=== PATIENT | female | born 1955 | race Caucasian/White ===

== ENCOUNTER 2024-10-08 16:31 | Emergency (ER) | payer MEDICARE, SELFPAY ==
--- NOTE | 2024-10-08 16:34 | ED.GENADULT ---
HPI - General Adult General Chief complaint: General Medical Stated complaint: left side face/cheek swollen Time Seen by Provider: 10/08/24 16:53 Related Data Allergies Allergy/AdvReac Type Severity Reaction Status Date / Time latex [LATEX] Allergy Unknown RASH Verified 10/08/24 16:39 pollen extracts [POLLEN] Allergy Unknown SINUS Verified 10/08/24 16:39 PROBLEMS, WATERY EYES PMFSH Social History Social History Advance Directives: No Advance Directives Information Provided: No Do you have a plan to hurt others: No Plan Physical Exam ED Vital Signs: Vital Signs - 24 hr 10/08/24 16:36 10/08/24 17:47 Temperature 97.1 F 98.0 F Pulse Rate 78 72 Respiratory Rate 18 16 Blood Pressure 148/50 H 120/44 L Pulse Oximetry 95 98 Oxygen Delivery Method Room Air Room Air BMI result Body Mass Index 44.8 Course Course Course Narrative: This is an RME: Additional HPI, ROS, PE not included below will be deferred to primary provider. RME assessment and note performed by: Krama Cunha PA-C This is a [id number]-female who presents to the ER with complaints of swelling and redness on left side of her face which begun yesterday. Reports that she had some dental work 1 month ago and was in the office for another tooth on thursday, which they just touched up on the same tooth. Reports that Thursday and she had a lot of discomfort on the left upper side of her face. She states that she contacted her dental office and was told to report to the emergency room and to receive IV antibiotics if it was warranted. Patient with no significant obvious left-sided facial swelling or pain. No obvious dental abscess. Reevaluation(s) Reevaluation #1: >> duplicate chart, see note by primary provider, Dr. Demarco. Medications Administered Discontinued Medications Generic Name Dose Route Start Last Admin Trade Name Freq PRN Reason Stop Dose Admin Piperacillin Sod/Tazobactam 50 mls @ 100 mls/hr 10/08/24 17:00 10/08/24 17:46 Sod 3.375 gm/ Sodium Chloride IV 10/08/24 17:29 Infused ONCE ONE Infusion Medical Decision Making Lab Data 10/08/24 17:15 10/08/24 17:15 Labs: Lab Results 10/08/24 Range/Units 17:15 WBC 9.2 (4.8-10.8) X10*3/uL RBC 4.12 L (4.20-5.50) X10*6/uL Hgb 12.3 (12.0-16.0) g/dl Hct 36.8 L (37.0-47.0) % MCV 89.3 (80.0-98.0) fL MCH 29.9 (27.0-33.0) pg MCHC 33.4 (31.0-35.0) g/dl RDW 13.3 (11.0-16.0) % Plt Count 240 (160-400) X10*3/uL MPV 10.5 (9.4-12.3) fL Immature Gran % (Auto) 0.3 (0.0-0.4) % Neut % (Auto) 58.2 (45-73) % Lymph % (Auto) 25.2 (20-40) % [place] % (Auto) 11.5 H (2-11) % Eos % (Auto) 4.4 H (0-4) % Baso % (Auto) 0.4 (0-2) % Lymph # (Auto) 2.3 (1.2-4.9) X10*3/uL [place] # (Auto) 1.1 (0.1-1.2) X10*3/uL Eos # (Auto) 0.4 (0.0-0.4) X10*3/uL Baso # (Auto) 0.0 (0.0-0.2) X10*3/uL Abs Immat Gran (auto) 0.03 (0.00-0.03) X10*3/uL Absolute Neuts (auto) 5.4 (2.0-8.3) x10*3/uL Absolute Nucleated RBC 0.000 (0.0-0.012) X10*3/uL Nucleated RBC % (auto) 0.0 (0.0-0.2) /100WBC Sodium 140 (135-145) mmol/L Potassium 4.3 (3.3-5.1) mmol/L Chloride 107 (96-108) mmol/L Carbon Dioxide 23 (22-29) mmol/L Anion Gap 14 (12-20) BUN 31 H (9-16) mg/dL Creatinine 1.22 (0.5-1.4) mg/dL Estim Creat Clear Calc 49.2 Estimated GFR 44 Random Glucose 125 H (60-115) mg/dL Calcium 9.8 (8.4-10.2) mg/dL Total Bilirubin 0.7 (0.0-1.0) mg/dL AST 26 (5-31) U/L ALT 27 (0-31) U/L Alkaline Phosphatase 65 (39-117) U/L Total Protein 7.0 (6.5-8.0) g/dL Albumin 4.2 (3.5-5.0) g/dL Discharge Plan Discharge Clinical Impression: Cellulitis of face Patient Disposition: Home, Self-Care Instructions: Cellulitis (ED) Additional Instructions: Take antibiotic as prescribed by your dentist Follow up with your PCP/dentist Interventions: ED Discharge Assessment Last Done: 10/08/24 17:47 Discharge Date/Time: 10/08/24 17:47 Print Language: Italian
[2024-10-08 16:36] VITALS: BP 148/50; PULSE 78; RESP 18; TEMP 36.2; O2SAT 95; BMI 44.8
--- NOTE | 2024-10-08 17:03 | ED_ITS ---
HPI - General Adult General Chief complaint: General Medical Stated complaint: left side face/cheek swollen Time Seen by Provider: 10/08/24 16:53 Source: patient Mode of arrival: ambulatory Limitations: no limitations History of Present Illness ED Provider: HPI narrative: Patient Diabetic apparently had filling done last week on the tooth 14 and 15 2 days ago patient had adjustment of the rough surface without any driling since yesterday patient noticed swelling and redness of the left cheek no significant pain fever or chills patient called dentist who advised her to go to the hospital for IV antibiotics Related Data Allergies Allergy/AdvReac Type Severity Reaction Status Date / Time latex [LATEX] Allergy Unknown RASH Verified 10/08/24 16:39 pollen extracts [POLLEN] Allergy Unknown SINUS Verified 10/08/24 16:39 PROBLEMS, WATERY EYES Review of Systems 2 Review of Systems: Yes all other systems are reviewed and are negative [facility] Social History Social History Advance Directives: No Advance Directives Information Provided: No Do you have a plan to hurt others: No Plan Physical Exam ED Vital Signs: Vital Signs - 24 hr 10/08/24 16:36 10/08/24 17:47 Temperature 97.1 F 98.0 F Pulse Rate 78 72 Respiratory Rate 18 16 Blood Pressure 148/50 H 120/44 L Pulse Oximetry 95 98 Oxygen Delivery Method Room Air Room Air BMI result Body Mass Index 44.8 Appearance: Alert. Oriented X3. No acute distress. Eyes: PERRLA, No Nystagmus ENT: Pharynx normal. Oral Mucosa moist slight tenderness at the base of tooth 14 no fluid in maxillary sinus on transillumination patient does have cellulitis changes of the left cheek Neck: Normal inspection. Neck supple. CVS: Normal heart rate and rhythm. Pulses normal. Respiratory: No respiratory distress. Equal air entry bilateral, no wheezing/rales/rhonchi Abdomen: Soft and nontender. Bowel sounds are present, no mass palpable, no CVA tenderness Skin: Skin warm and dry. Normal skin color. Normal skin turgor. Extremities: No lower extremity edema. No calf tenderness Neuro: Oriented X 3. No motor deficit. No sensory deficit.No cerebellar signs , cranial nerves II-XII intact Medications Administered Discontinued Medications Generic Name Dose Route Start Last Admin Trade Name Freq PRN Reason Stop Dose Admin Piperacillin Sod/Tazobactam 50 mls @ 100 mls/hr 10/08/24 17:00 10/08/24 17:46 Sod 3.375 gm/ Sodium Chloride IV 10/08/24 17:29 Infused ONCE ONE Infusion Medical Decision Making Medical Decision Making [facility] Narrative: Patient's uncomplicated left facial cellulitis pumps dental procedure white counts are normal was given 1 dose of Zosyn patient does have prescription of Augmentin she will continue on follow up with dentist Lab Data [facility] Lab Attestation statement: I reviewed the patient's lab results. 10/08/24 17:15 10/08/24 17:15 Labs: Lab Results 10/08/24 Range/Units 17:15 WBC 9.2 (4.8-10.8) X10*3/uL RBC 4.12 L (4.20-5.50) X10*6/uL Hgb 12.3 (12.0-16.0) g/dl Hct 36.8 L (37.0-47.0) % MCV 89.3 (80.0-98.0) fL MCH 29.9 (27.0-33.0) pg MCHC 33.4 (31.0-35.0) g/dl RDW 13.3 (11.0-16.0) % Plt Count 240 (160-400) X10*3/uL MPV 10.5 (9.4-12.3) fL Immature Gran % (Auto) 0.3 (0.0-0.4) % Neut % (Auto) 58.2 (45-73) % Lymph % (Auto) 25.2 (20-40) % [place] % (Auto) 11.5 H (2-11) % Eos % (Auto) 4.4 H (0-4) % Baso % (Auto) 0.4 (0-2) % Lymph # (Auto) 2.3 (1.2-4.9) X10*3/uL [place] # (Auto) 1.1 (0.1-1.2) X10*3/uL Eos # (Auto) 0.4 (0.0-0.4) X10*3/uL Baso # (Auto) 0.0 (0.0-0.2) X10*3/uL Abs Immat Gran (auto) 0.03 (0.00-0.03) X10*3/uL Absolute Neuts (auto) 5.4 (2.0-8.3) x10*3/uL Absolute Nucleated RBC 0.000 (0.0-0.012) X10*3/uL Nucleated RBC % (auto) 0.0 (0.0-0.2) /100WBC Sodium 140 (135-145) mmol/L Potassium 4.3 (3.3-5.1) mmol/L Chloride 107 (96-108) mmol/L Carbon Dioxide 23 (22-29) mmol/L Anion Gap 14 (12-20) BUN 31 H (9-16) mg/dL Creatinine 1.22 (0.5-1.4) mg/dL Estim Creat Clear Calc 49.2 Estimated GFR 44 Random Glucose 125 H (60-115) mg/dL Calcium 9.8 (8.4-10.2) mg/dL Total Bilirubin 0.7 (0.0-1.0) mg/dL AST 26 (5-31) U/L ALT 27 (0-31) U/L Alkaline Phosphatase 65 (39-117) U/L Total Protein 7.0 (6.5-8.0) g/dL Albumin 4.2 (3.5-5.0) g/dL Discharge Plan Discharge Clinical Impression: Cellulitis of face Patient Disposition: Home, Self-Care Instructions: Cellulitis (ED) Additional Instructions: Take antibiotic as prescribed by your dentist Follow up with your PCP/dentist Interventions: ED Discharge Assessment Last Done: 10/08/24 17:47 Discharge Date/Time: 10/08/24 17:47 Print Language: Turkmen
[2024-10-08] MEDS: Piperacillin Sodium/Tazobactam 3.375 GM in 0.9 % Sodium Chloride 50 ML IV (17:15)
[2024-10-08 17:23] LABS: MANUAL DIFF FLAG NO
[2024-10-08 17:25] LABS: Basophils Percent Auto 0.4 % (0-2); Eosinophils Absolute Auto 0.4 X10*3/uL (0.0-0.4); Eosinophils Percent Auto 4.4 % (0-4); Hematocrit 36.8 % (37.0-47.0); Hemoglobin 12.3 g/dl (12.0-16.0); Imm Gran Abs Auto 0.03 X10*3/uL (0.00-0.03); Imm Gran Pct Auto 0.3 % (0.0-0.4); Lymphocytes Absolute Auto 2.3 X10*3/uL (1.2-4.9); Lymphocytes Percent Auto 25.2 % (20-40); Mean Corpuscular HGB Conc 33.4 g/dl (31.0-35.0); Mean Corpuscular Hemoglobin 29.9 pg (27.0-33.0); Mean Corpuscular Volume 89.3 fL (80.0-98.0); Mean Platelet Volume 10.5 fL (9.4-12.3); Monocytes Absolute Auto 1.1 X10*3/uL (0.1-1.2); Monocytes Percent Auto 11.5 % (2-11); Neutrophils Absolute Auto 5.4 x10*3/uL (2.0-8.3); Neutrophils Percent Auto 58.2 % (45-73); Platelet Count 240 X10*3/uL (160-400); Red Blood Count 4.12 X10*6/uL (4.20-5.50); Red Cell Distribution Width 13.3 % (11.0-16.0); White Blood Count 9.2 X10*3/uL (4.8-10.8)
--- OUTSIDE RECORDS SUMMARY | 2024-10-08 17:34 | XMS_ITS ---
[facility] [place] [facility] [address] [place] [address] Care Team Providers Care Pharmacy Assistant Name Role Phone Jaiden Chauhan MD Primary Care Provider UnavailMildred Means Unavailable [phone] Allergies Allergen (clinical drug ingredient) Drug/Non Drug Allergy documented on EMR Reaction Allergy Type Onset Date Status Adhesive Unknown Allergy Active Latex Latex rash Allergy Active REASON FOR VISIT Post-op Medications Medication SIG (Take, Route, Frequency, Duration) Notes Start Date End Date Status Fiber Complete as directed Orally Not-Taking Vitamin B Complex as directed Orally Not-Taking Losartan Potassium 50 MG 1 tablet Orally Once a day for 30 day(s) Not-Taking Metoprolol Succinate ER 25 MG 1 tablet Orally Once a day for 30 day(s) Not-Taking Fish Oil 1000 MG 1 capsule with a meal Orally Once a day for 30 day(s) Not-Taking Atorvastatin Calcium 20 MG 1 tablet Orally Once a day for 30 day(s) Not-Taking Flovent HFA inhaler Not-Taki ng metFORMIN HCl ER 500 MG 1 tablet with evening meal Orally Once a day for 30 day(s) off for a week Not-Taking Probiotic Not-Taking Omeprazole 20 MG 1 capsule 30 minutes before morning meal Orally 4 times a week for 30 days Not-Taking Vitamin D3 50 MCG (1999 UT) 1 capsule Orally Once a day Active Gabapentin 300 MG 1 capsule Orally at bedtime for 15 days 10/19/2023 Not-Taking Ibuprofen 800 MG 1 tablet every Orally every 8 hrs for 10 days 10/19/2023 Not-Taking Acetaminophen Extra Strength 500 MG 2 tablet as needed Orally every 6 hrs for 15 days 10/19/2023 Not-Taking Extra Depth Orthopedic Shoes (1 Pair) with Customized Heat Molded Multidensity Innersoles (3 Pair) as directed Dx: NIDDM (E11.9), Hammertoe Foot Deformity (M20.41,M20.42), Preulcerative Skin Lesion(s) (L85.1) 10/09/2022 Active ProAir HFA prn Active Olmesartan Medoxomil 40 MG 1 tablet Orally Once a day for 30 day(s) Active Multi Vitamin - 1 tablet Orally Once a day for 30 day(s) Active Magnesium 250 MG as directed Orally Once a day Active Carvedilol 6.25 MG 1 tablet with food Orally Twice a day Active amLODIPine Besylate 2.5 MG as directed Orally Once a day Active Pepcid Active Flonase Active Amoxicillin Dental Appointments Active Furosemide 20 MG 1 tablet Orally Once a day Active Simvastatin 20 MG 1 tablet every evening Orally Once a day for 30 day(s) Not-Taking Omeprazole 40 MG 1 capsule Orally Once a day for 30 day(s) Not-Taking Aleve 220 MG 1 tablet Orally every 12 hrs Not-Taking Rybelsus 3 MG as directed Orally Once a day Active Baby Aspirin Active Social History Tobacco Use: Social History Observation Description Date Details (start date - stop date) Never Smoker NA - NA Tobacco Use/Smoking Question Answer Notes Are you a: nonsmoker Additional Findings: Tobacco Non-User Cu rrent non-smoker, but past smoking history unknown Alcohol Screen Question Answer Notes Did you have a drink contain ing alcohol in the past year? Yes How often did you have a dri nk containing alcohol in the past year? Monthly or less (1 point) How many drinks did you have on a typical day when you were drinking in the past year? 1 or 2 drinks (0 point) How often did you have 6 or more drinks on one occasion in the past year? Daily or almost daily (4 points) Points 5 Interpretation Positive Tobacco use other than smoking: Question Answer Notes Are you an other tobacco user? No Vital Signs Height 5ft1in in 11/19/2023 Weight 231 lbs 11/19/2023 BMI 43.64 kg/m2 11/19/2023 Blood pressure systolic 127 mm Hg 11/19/19 24 Blood pressure diastolic 63 mm Hg 024 Encounters Encounter Location Date [facility] [place] [address] 11/19/2023 Mildred Fields Type 2 diabetes mellitus without complications E11.9 ; Ganglion, right ankle and foot M67.471 ; Hypertrophy of bone M89.30 and Exostosis of toe M89.8X7 Assessments Encounter Date Diagnosis (ICD Code) Assessment Notes Treatment Notes Treatment Clinical Notes Section Notes 11/19/2023 Type 2 diabetes mellitus without complications (ICD-10 - E11.9) 11/19/2023 Ganglion, right ankle and foot (ICD-10 - M67.471) 11/19/2023 Hypertrophy of bone (ICD-10 - M89.30) 11/19/2023 Exostosis of toe (ICD-10 - M89.8X7) Plan Of Treatment Next Appt Details Follow Up: 6 Weeks, Reason: Provider Name:Mildred Fields , 01/02/2025 10:00:00 AM, [address] [place] [address], [id number], Procedure Notes * Category Sub-Category Detail Notes Dressing Change: Type: bandaide, Topical: bacitacin applied Progress Notes * Kelsie SHINE MDOB:1955 (67 yo F)Acc No.[id number]:11/19/2023 PROGRESS NOTES Patient:?Kelsie Shine Provider:?Mildred Fields DPM :1955???Age:67 Y???Sex:Female D ate:11/19/2023 Address: [address], [place], [place] Pcp:Jaiden Chauhan MD Subjective: * Chief Complaints: * ???Post-op * HPI: ???Post-op:?The patient presents for post-op of?Exostectomy 1st, , , Ganglion excision , Right.?Date of Surgery?:?10/28/2023 ?Current symptoms include?Pt denies fever, chills, nausea, calf pain, SOB, or increased anxiety, Pt states pain under control. mild discomfort with rom.? * ROS:?General/Constitutional:?Nausea?denies.?Vomiting?denies.?Hunger Thirst?denies.?Loss appetite?denies.?Chills?denies.?Fatigue?denies.?Fever?denies.?Night Sweats?denies.?Unexplained weight loss?denies.?Unexplained weight gain?denies.?HEENTM:?Dentures?denies.?Dizziness?denies.?Glasses/contacts?admits.?Retinopathy?de nies.?Blurred/double vision?denies.?TMJ?denies.?Discharge/drainage?denies.?Implants?denies.?Sore throat?denies.?Dental implants?admits.?Hard of hearing ?admits.?Difficulty chewing/swallowing/speaking?denies.?Nose bleeds?denies.?Sore mouth?denies.?Respiratory:?On Oxygen?denies.?Pneumonia/pleurisy?denies.?Bronchitis?admits.?Emphysema?denies.?C oughing?admits.?Cough blood?denies.?Shortness of breath?admits.?Wheezing?admits.?Cardiovascular:?Pacemaker?denies.?MVP?denies.?WPW?admits.?CHF?denies.?Heart attack?denies.?Septal defect?denies.?Rapid beat?admits.?Chest pain ?denies.?Atrial Fib.?denies.?Murmur/Palpitations?admits.?Gastrointestinal:?Hemorrhoids?denies.?Stomach/Abdominal pain?denies.?Dark blood stool?denies.?Irritable bowel ?denies.?Constipation?denies.?Diarrhea?denies.?Hematology:?Swelling?denies.?Clots?denies.?Varicose Veins?admits.?Bruising?denies.?Bleeding problem?denies.?Genitourinary:?Blood urine?denies.?Frequent/Painfu/urination/bladder control?denies.?Kidney stones?denies.?Infection (UTI)?denies.?Nephropathy?denies.?sex trans dis (STD)?denies.?Prostate?denies.?Musculoskeletal:?Hammertoes?denies.?Bunions?denies.?Back Pain?admits.?Muscle Cramps/ Resting?admits.?Muscle cramps / walking?admits.?Generalized aches and pains?admits.?Weakness?denies.?Integ.:?[place]?denies.?Scars?admits.?Corns/calluses?denies.?Ingrown nails?denies.?Painful nails?admits.?Open Sores?denies.?Rashes?denies.?Neurologic:?Difficulty sleeping?denies.?Brain disorder?denies.?Numbness?denies.?Balance trouble?denies.?Confusion?denies.?Fainting/blackouts?denies.?Tingling?denies.?Tr emors?denies.? * Medical History:? * Surgical History:? s ection 03/07/1991Left knee replacement 07/22/2018Right Knee rePlacement 11/16/2018Cardiac Morutor placed 06/11/2020cortisone injection Ramon upper leg 03/17/2022ataract surgery 2Removal of Cyst Right Hallux 10/28/2023 * Hospitalization/Major Diagno stic Procedure:?Denies Past Hospitalization * Family History:?Mother: dece ased, Defects, diagnosed with Unspecified heart disease.?Father: , stroke, diagnosed with Unspecified essential hypertension.?Maternal Grand Mother: Arthritis.?Siblings: , Stroke( brother ) from lung cancer., diagnosed with Unspecified essential hypertension.?Paternal aunt: diagnosed with Diabetic - NIDDM.?Paternal uncle: diagnosed with Other malignant neoplasm of unspecified site.?Maternal uncle: diagnosed with Other malignant neoplasm of unspecified site.?1 brother(s) . .? * Social History:?Tobacco Use:?Tobacco Use/Smoking?Are you a:?nonsmoker ?Additional Findings: Tobacco Non-User?Current non-smoker, but past smoking history unknown ?Tobacco use other than smoking?Are you an other tobacco user??No ???Drugs/Alcohol:?Drugs?Have you used drugs other than those for medical reasons in the past 12 months??No ?Alcohol Screen?Did you have a drink containing alcohol in the past year??Yes ?How often did you have a drink containing alcohol in the past year??Monthly or less (1 point) ?How many drinks did you have on a typical day when you were drinking in the past year??1 or 2 drinks (0 point) ?How often did you have 6 or more drinks on one occasion in the past year??Daily or almost daily (4 points) ?Points?5 ?Interpretation?Positive ???Miscellaneous:?Caffeine: yes, frequency: , 1-2 cups per day. ?Children: yes. ?Exercise: yes, Healthy bones and excise class. ?Marital status: . ?Occupation: Retired. * Medications:?TakingBaby Aspi rin Rybelsus 3 MG Tablet as directed Orally Once a dayFurosemide 20 MG Tablet 1 tablet Orally Once a dayAmoxicillin , Notes: Dental AppointmentsFlonase Pepcid amLODIPine Besylate 2.5 MG Tablet as directed Orally Once a dayCarvedilol 6.25 MG Tablet 1 tablet with food Orally Twice a dayMagnesium 250 MG Tablet as directed Orally Once a dayMulti Vitamin - Tablet 1 tablet Orally Once a dayOlmesartan Medoxomil 40 MG Tablet 1 tablet Orally Once a dayProAir HFA , Notes: prnVitamin D3 50 MCG (1999 UT) Capsule 1 capsule Orally Once a dayExtra Depth Orthopedic Shoes (1 Pair) with Customized Heat Molded Multidensity Innersoles (3 Pair) as directed Dx: NIDDM (E11.9), Hammertoe Foot Deformity (M20.41,M20.42), Preulcerative Skin Lesion(s) (L85.1)Taking Baby Aspirin Taking Rybelsus 3 MG Tablet as directed Orally Once a dayTaking Furosemide 20 MG Tablet 1 tablet Orally Once a dayTaking Amoxicillin , Notes: Dental AppointmentsTaking Flonase Taking Pepcid Taking amLODIPine Besylate 2.5 MG Tablet as directed Orally Once a dayTaking Carvedilol 6.25 MG Tablet 1 tablet with food Orally Twice a dayTaking Magnesium 250 MG Tablet as directed Orally Once a dayTaking Multi Vitamin - Tablet 1 tablet Orally Once a dayTaking Olmesartan Medoxomil 40 MG Tablet 1 tablet Orally Once a dayTaking ProAir HFA , Notes: prnTaking Vitamin D3 50 MCG (1999 UT) Capsule 1 capsule Orally Once a dayTaking Extra Depth Orthopedic Shoes (1 Pair) with Customized Heat Molded Multidensity Innersoles (3 Pair) as directed Dx: NIDDM (E11.9), Hammertoe Foot Deformity (M20.41,M20.42), Preulcerative Skin Lesion(s) (L85.1)Not-Taking/PRNAcetaminophen Extra Strength 500 MG Tablet 2 tablet as needed Orally every 6 hrsIbuprofen 800 MG Tablet 1 tablet every Orally every 8 hrsGabapentin 300 MG Capsule 1 capsule Orally at bedtimeOmeprazole 20 MG Capsule Delayed Release 1 capsule 30 minutes before morning meal Orally 4 times a weekProbiotic metFORMIN HCl ER 500 MG Tablet Extended Release 24 Hour 1 tablet with evening meal Orally Once a day, Notes: off for a weekFlovent HFA , Notes: inhalerAtorvastatin Calcium 20 MG Tablet 1 tablet Orally Once a dayFiber Complete Tablet as directed Orally Fish Oil 1000 MG Capsule 1 capsule with a meal Orally Once a dayMetoprolol Succinate ER 25 MG Tablet Extended Release 24 Hour 1 tablet Orally Once a dayLosartan Potassium 50 MG Tablet 1 tablet Orally Once a dayVitamin B Complex Capsule as directed Orally Aleve 220 MG Tablet 1 tablet Orally every 12 hrsOmeprazole 40 MG Capsule Delayed Release 1 capsule Orally Once a daySimvastatin 20 MG Tablet 1 tablet every evening Orally Once a dayMedication List reviewed and reconciled with the patientNot-Taking/PRN Acetaminophen Extra Strength 500 MG Tablet 2 tablet as needed Orally every 6 hrsNot-Taking/PRN Ibuprofen 800 MG Tablet 1 tablet every Orally every 8 hrsNot-Taking/PRN Gabapentin 300 MG Capsule 1 capsule Orally at bedtimeNot- Taking/PRN Omeprazole 20 MG Capsule Delayed Release 1 capsule 30 minutes before morning meal Orally 4 times a weekNot-Taking/PRN Probiotic Not-Taking/PRN metFORMIN HCl ER 500 MG Tablet Extended Release 24 Hour 1 tablet with evening meal Orally Once a day, Notes: off for a weekNot-Taking/PRN Flovent HFA , Notes: inhalerNot-Taking/PRN Atorvastatin Calcium 20 MG Tablet 1 tablet Orally Once a dayNot-Taking/PRN Fiber Complete Tablet as directed Orally Not-Taking/PRN Fish Oil 1000 MG Capsule 1 capsule with a meal Orally Once a dayNot-Taking/PRN Metoprolol Succinate ER 25 MG Tablet Extended Release 24 Hour 1 tablet Orally Once a dayNot-Taking/PRN Losartan Potassium 50 MG Tablet 1 tablet Orally Once a dayNot-Taking/PRN Vitamin B Complex Capsule as directed Orally Not-Taking/PRN Aleve 220 MG Tablet 1 tablet Orally every 12 hrsNot-Taking/PRN Omeprazole 40 MG Capsule Delayed Release 1 capsule Orally Once a dayNot- Taking/PRN Simvastatin 20 MG Tablet 1 tablet every evening Orally Once a dayMedication List reviewed and reconciled with the patient * Allergies:?Latex: Loc marr[Allergies Verified] Objective: * Vitals:?Ht: 5ft1in, Wt:231, BMI:43.64, Shoe size: 8, BP:127/63 mm Hg, BS: not taken, Ht-cm: 154.94 cm, Wt-k.78 kg. * ???Past Orders: ???Lab:HEMOGLOBIN A1C (GLYCO HEMOGLOBIN) (Order Date - 10/01/2023) (Collection Date - 08/21/2023) ? Value Reference Range ?HEMOGLOBIN A1C (HH) 7.2 * Examination: ???Ophthalmology Referral: ?DIABETES EYE EXAM?Diabetic Retinopathy Screening:?Yes ?Findings of Diabetic Eye Exam:?no retinopathy?Dermatologic: ?SURGICAL SITE??Incision edges are well aligned and adhered, CFT intact , No signs or symptoms consistent with infection , NO?Pain on palpation/ecchymosis/edema, (-), erythema/hematoma/dehiscence/cellulitis.? Assessment: * Assessment: 1.?Type 2 diabetes mellitus without complications - E11.9?2.?Ganglion, right ankle and foot - M67.471 (Primary)?3.?Hypertrophy of bone - M89.30?4.?Exostosis of toe - M89.8X7? Plan: * Treatment: * Procedures:?Dressing Change::?Type:?bandaide, ?.?Topical:?bacitacin applied.? * Procedure Codes:? * Preventive Medicine:? ??Counseling:?Post-op:?I reviewed with the patient the usual surgical post-op course. The patient is to call with any questions/complications, and will follow-up as scheduled, gradually increase activity to tolerance, Pt can begin showering per usual starting tomorrow, can apply abx ointment to incisions to help with scarring.? * Follow Up:?6 Weeks * Images: * Sign off status: Completed true * Provider:?Mildred Fields DPM Date:?2023 Generated for Yanna boss/Melanie/Lanceitting on:?10/08/2024 05:34 PM EDT History and Physical Notes * HPI (History of Present Illness) Category Sub-Category Detail Notes Category Not es Post-op The patient presents for post-op of Exostectomy 1st, , , Ganglion excision , Right Current symptoms include Pt denies fever , chills, nausea, calf pain, SOB, or increased anxiety, Pt states pain under control. mild discomfort with rom Date of Surgery :: 10/28/2023 Examination Category Sub-Category Detail Notes Category Not es Dermatologic SURGICAL SITE Incision edges a re well aligned and adhered, CFT intact , No signs or symptoms consistent with infection , NO Pain on palpation/ecchymosis/edema, (-), erythema/hematoma/dehiscence/ cellulitis Ophthalmology Referral DIABETES EYE EXAM Diabeti c Retinopathy Screening:: Yes Findings of Diabetic Eye Exam:: no retin opathy Dressing APPEARANCE
--- OUTSIDE RECORDS SUMMARY | 2024-10-08 17:34 | XMS_ITS ---
[facility] Organization [facility] [place] Address [address] [place], [place] [address] Care Team Providers Care Tennis Desk Team Member Name Role Phone Jaiden Chauhan MD Primary Care Provider Unavaila vida Fields Mildred Unavailable [phone] Kisha Chandler Unavailable [phone] Allergies Allergen (clinical drug ingredient) Drug/Non Drug Allergy documented on EMR Reaction Allergy Type Onset Date Status Adhesive Unknown Allergy Active Latex Latex rash Allergy Active REASON FOR VISIT Post-op, Pcp-10/13 Medications Medication SIG (Take, Route, Frequency, Duration) Notes Start Date End Date Status Flovent HFA inhaler Not-Taki ng Probiotic Not-Taking metFORMIN HCl ER 500 MG 1 tablet with evening meal Orally Once a day for 30 day(s) off for a week Not-Taking Gabapentin 300 MG 1 capsule Orally at bedtime for 15 days 10/19/2023 Not-Taking Omeprazole 20 MG 1 capsule 30 minutes before morning meal Orally 4 times a week for 30 days Not-Taking ProAir HFA prn Active Vitamin D3 50 MCG (1999) 1 capsule Orally Once a day Active Extra Depth Orthopedic Shoes (1 Pair) with Customized Heat Molded Multidensity Innersoles (3 Pair) as directed Dx: NIDDM (E11.9), Hammertoe Foot Deformity (M20.41,M20.42), Preulcerative Skin Lesion(s) (L85.1) 10/09/2022 Active Acetaminophen Extra Strength 500 MG 2 tablet as needed Orally every 6 hrs for 15 days 10/19/2023 Not-Taking Ibuprofen 800 MG 1 tablet every Orally every 8 hrs for 10 days 10/19/2023 Not-Taking Multi Vitamin - 1 tablet Orally Once a day for 30 day(s) Active Olmesartan Medoxomil 40 MG 1 tablet Orally Once a day for 30 day(s) Active Carvedilol 6.25 MG 1 tablet with food Orally Twice a day Active Magnesium 250 MG as directed Orally Once a day Active amLODIPine Besylate 2.5 MG as directed Orally Once a day Active Furosemide 20 MG 1 tablet Orally Once a day Active Rybelsus 3 MG as directed Orally Once a day Active Pepcid Active Amoxicillin Dental Appointments Active Flonase Active Simvastatin 20 MG 1 tablet every evening Orally Once a day for 30 day(s) Not-Taking Aleve 220 MG 1 tablet Orally every 12 hrs Not-Taking Omeprazole 40 MG 1 capsule Orally Once a day for 30 day(s) Not-Taking Losartan Potassium 50 MG 1 tablet Orally Once a day for 30 day(s) Not-Taking Vitamin B Complex as directed Orally Not-Taking Atorvastatin Calcium 20 MG 1 tablet Orally Once a day for 30 day(s) Not-Taking Fiber Complete as directed Orally Not-Taking Fish Oil 1000 MG 1 capsule with a meal Orally Once a day for 30 day(s) Not-Taking Metoprolol Succinate ER 25 MG 1 tablet Orally Once a day for 30 day(s) Not-Taking Social History Tobacco Use: Social History Observation [...] user? No Vital Signs Height 5ft1in in 11/13/2023 Weight 231 lbs 11/13/2023 BMI 43.64 kg/m2 11/13/2023 Blood pressure systolic 137 mm Hg 11/13/19 Blood pressure diastolic 72 mm Hg 024 Encounters Encounter Location Date Provider Diagnosis [facility] [address] [place] [address] 11/13/2023 Kisha Chandler Type 2 diabetes mellitus without complications E11.9 ; Ganglion, right ankle and foot M67.471 ; Hypertrophy of bone M89.30 and Exostosis of toe M89.8X7 Assessments Encounter Date Diagnosis (ICD Code) Assessment Notes Treatment Notes Treatment Clinical Notes Section Notes 11/13/2023 Type 2 diabetes mellitus without complications (ICD-10 - E11.9) 11/13/2023 Ganglion, right ankle and foot (ICD-10 - M67.471) 11/13/2023 Hypertrophy of bone (ICD-10 - M89.30) 11/13/2023 Exostosis of toe (ICD-10 - M89.8X7) Plan Of Treatment Next Appt Details Follow Up: as scheduled, Elida son: Provider Name:Mildred Fields , 01/02/2025 10:00:00 AM, [address] [place] [address], [phone], Procedure Notes * Category Sub-Category Detail Notes Dressing Change: Type: dry sterile layla ssing Topical: bacitacin applied Removal of: sutures performed wi th sterile forceps/suture scissors or #15 blade, area cleaned with alcohol prior to removal Progress Notes * Kelsie SHINE MDOB:1955 (67 yo F)Acc No.[id number]:11/13/2023 PROGRESS NOTES Patient:?Kelsie Shine Provider:?Kisha Chandler DPM :1955???Age:67 Y???Sex:Female D ate:11/13/2023 Address: [address], [place], [place] Pcp:Jaiden Chauhan MD Subjective: * Chief Complaints: * ???Nejq-ysWuc-43/24 * HPI: ???Post-op:?The patient presents for post-op of?Exostectomy 1st, , , Ganglion excision , Right.?Date of Surgery?:?10/28/2023 ?Current symptoms include?Pt denies fever, chills, nausea, calf pain, SOB, or increased anxiety, Pt states pain under control. Pt relates she showered and her dressing is wet so she changed it.? Pt presents WB in sketchers.? * ROS:?General/Constitutional:?Nausea?denies.?Vomiting?denies.?Hunger Thirst?denies.?Loss appetite?denies.?Chills?denies.?Fatigue?denies.?Fever?denies.?Night Sweats?denies.?Unexplained weight loss?denies.?Unexplained [...] Morutor placed 06/11/2020cortisone injection Ramon upper leg 2cataract surgery 2Removal of Cyst Right Hallux 10/28/2023 [...] class. ?Marital status: . ?Occupation: Retired. * Medications:?TakingRybelsus 3 MG Tablet as directed Orally Once [...] HFA , Notes: prnVitamin D3 50 MCG (2000 UT) Capsule 1 capsule Orally Once a dayExtra Depth Orthopedic Shoes (1 Pair) with Customized Heat Molded Multidensity Innersoles (3 Pair) as directed Dx: NIDDM (E11.9), Hammertoe Foot Deformity (M20.41,M20.42), Preulcerative Skin Lesion(s) (L85.1)Taking Rybelsus 3 MG Tablet as directed Orally [...] and reconciled with the patient * Allergies:?Latex: rashAdhesi veyes[Allergies Verified] Objective: * Vitals:?Ht: 5ft1in, Wt:231, BMI:43.64, Shoe size: 8, BP:137/72 mm Hg, BS: 133, Ht-cm: 154.94 cm, Wt-k.78 kg. * ???Past Orders: ???Lab:HEMOGLOBIN A1C (GLYCO HEMOGLOBIN) (Order Date - 10/01/2023) (Collection Date - 08/21/2023) ? Value Reference Range ?HEMOGLOBIN A1C (HH) 7.2 * Examination: ???Ophthalmology Referral: ?DIABETES EYE EXAM?Diabetic Retinopathy Screening:?Yes ?Findings of Diabetic Eye Exam:?no retinopathy?Dressing: ?APPEARANCE?Clean, dry, and intact, with dry to moist blood present, no malodor.?Dermatologic: ?SURGICAL SITE?Skin and Sutures intact, Incision edges are well aligned and adhered, CFT intact , No signs or symptoms consistent with infection , NO?Pain on palpation/ecchymosis/edema, (-), erythema/hematoma/dehiscence/cellulitis.? Assessment: * Assessment: 1.?Type 2 diabetes mellitus without complications - E11.9?2.?Hypertrophy of bone - M89.30?3.?Ganglion, right ankle and foot - M67.471 (Primary)?4.?Exostosis of toe - M89.8X7? Plan: * Treatment: * Procedures:?Dressing Change::?Type:?dry sterile dressing.?Topical:?bacitacin applied.?Removal of:?sutures performed with sterile forceps/suture scissors or #15 blade, area cleaned with alcohol prior to removal.? * Procedure Codes:? * Preventive Medicine:? ??Counseling:?Post-op:?I reviewed with the patient the usual surgical post-op course. The patient is to call with any questions/complications, and will follow-up as scheduled, discussed and reviewed signs and symptoms of DVT, pt to monitor and call with any concerns, Pt to continue to ice and elevate foot to help with post op swelling and pain, Pt can begin showering per usual starting tomorrow, can apply abx ointment to incisions to help with scarring, return to accom firm-soled shoe for stability and support, gradually increase activity to tolerance-pt to still stay our of fitness class until cleared next week by Dr Fields.? * Follow Up:?as scheduled * Images: * Sign off status: Completed true * Provider:?Kisha Chandler, LINDSAY Date:? Generated for Josei karyn/Melanie/Lanceitting on:?10/08/2024 05:34 PM EDT History and Physical Notes * HPI (History of Present Illness) Category Sub-Category Detail Notes Category Not es Post-op The patient presents for post-op of Exostectomy 1st, , , Ganglion excision , Right Current symptoms include Pt denies fever , chills, nausea, calf pain, SOB, or increased anxiety, Pt states pain under control. Pt relates she showered and her dressing is wet so she changed it. Pt presents WB in [facility] Date of Surgery :: 10/28/2023 Examination Category Sub-Category Detail Notes Category Not es Dermatologic SURGICAL SITE Skin and Sutures intact, Incision edges are well aligned and adhered, CFT intact , No signs or symptoms consistent with infection , NO Pain on palpation/ecchymosis/edema, (-), erythema/hematoma/dehiscence/ cellulitis Ophthalmology Referral DIABETES EYE EXAM Diabeti c Retinopathy Screening:: Yes Findings of Diabetic Eye Exam:: no retin opathy Dressing APPEARANCE Clean, dry, and intact, with dry to moist blood present, no malodor
--- OUTSIDE RECORDS SUMMARY | 2024-10-08 17:34 | XMS_ITS | Patient Health Record ---
Author Organization [facility] Address [address] [place] [address] Care Team Providers Care Furnace Reliner Name Role Phone Jaiden Chauhan MD Primary Care Provider Zurdo Stein Unavailable [phone] Allergies Allergen (clinical drug ingredient) Drug/Non Drug Allergy documented on EMR Reaction Allergy Type Onset Date Status Latex latex (uncoded) Unknown Allergy Acti ve Reason For Referral No Information Medications Medication SIG (Take, Route, Frequency, Duration) Notes Start Date End Date Status ProAir RespiClick 108 (90 Base) MCG/ACT 1 puff as needed Inhalation every 4 hrs Active Furosemide 20 MG 1 tablet Orally Once a day Active Olmesartan Medoxomil 40 MG 1 tablet Oral ly Once a day Active Carvedilol 6.25 MG 1 tablet with food O rally Twice a day Active amLODIPine Besylate 5 MG 1 tablet Orally Once a day Active Famotidine 20 MG 1 tablet at bedtime as needed Orally Once a day Active Atorvastatin Calcium 20 MG 1 tablet Oral ly Once a day Active Magnesium 400 MG as directed Orally Active Multi Vitamin - 1 tablet Orally Once a day Active Triamcinolone Acetonide 0.025 % 1 application Externally Once a day Active Aspirin 81 81 MG 1 tablet Orally Once a day Active Vitamin D 2000iu Act deyanira Mounjaro 2.5 MG/0.5ML as directed Subcutaneous Active Immunizations Vaccine Route Administration Date Status Comme nts Influenza Unknown 03/08/2024 Administered Social History AUDIT-C (Standard) Question Answer Notes Did you have a drink contain ing alcohol in the past year? Yes How often did you have a dri nk containing alcohol in the past year? 2 to 4 times a month (2 points) How many drinks did you have on a typical day when you were drinking in the past year? 1 or 2 drinks (0 point) How often did you have six o r more drinks on one occasion in the past year? Never (0 point) Points 2 Interpretation Negative Section Notes: Nonsmoker; 1-2 glasses of wi ne occasionally Nonsmoker; 1-2 glasses of wi ne occasionally Nonsmoker; 1-2 glasses of wi ne occasionally/ quit smoking 25 years ago Nonsmoker; 1-2 glasses of wi ne occasionally Problems Problem Type SNOMED Code ICD Code Onset Dates Problem Status W/U Status Risk Notes Problem Colon cancer screening (869549303) Colon cancer screening (Z12.11) Active confirmed Problem 618503014 Gastro-esophagea l reflux disease without esophagitis (K21.9) Active confirmed Problem 764173191 Barretts esophagus without dysplasia (K22.70) Active confirmed Vital Signs Temperature 97.5 degrees Fahrenheit 08/31/2024 Blood pressure diastolic 01 mm Hg 08/31/2024 Height 61.50 in 08/31/2024 Blood pressure systolic 001 mm Hg 08/31/2024 Weight 235 lbs 08/31/2024 BMI 43.68 kg/m2 08/31/2024 Procedures Procedure Date Ordered Date Performed Result Body Sit e COLONOSCOPY 08/31/2024 N/A Encounters Encounter Location Date Provider Diagnosis [facility] [address] [facility] [address] [place] [phone] 08/31/2024 Zurdo Dyer Gastro-esophageal reflux disease without esophagitis K21.9 ; Colon cancer screening Z12.11 and Abdominal actinomycosis A42.1 Assessments Encounter Date Diagnosis (ICD Code) Assessment Notes Treatment Notes Treatment Clinical Notes Section Notes 08/31/2024 Colon cancer screening (ICD-10 - Z12.11) Overall, Kelsie appears quite well. Her reflux remains quite stable on her famotidine. She is not having any new nor worrisome symptoms in regard to the reflux and I advised her to simply continue the famotidine for symptomatic relief. We did review that if the reflux was to begin worsening in frequency and/or severity, we could always put her on another trial of a PPI. I do not think she needs any endoscopy at this time. We did review that obviously watching her diet and weight would be a good thing for her overall health, as well as specifically for the reflux symptoms. I did recommend a follow-up screening colonoscopy as her last exam was over 10 years ago. We did review the rationale for this in regard to colon cancer prevention. Full consent has been taken for this, including risks of bleeding and perforation. The procedure will be done with monitored anesthesia care. She was given the below instructions regarding adjustment of some of her medications for the procedure. Due to her 's recent diagnosis of pancreatic cancer and his need for chemotherapy for the next 4 months or so, as well as possible subsequent surgery, we are going to plan to do her colonoscopy in the Fall. I do not think there is any particular urgency to her colonoscopy at this time as she has no particular GI symptoms and there is no significant family history of colorectal cancer. Kelsie was comfortable with this plan. Thank you again for allowing me to participate in Kelsie's care. I shall continue to keep you advised of her progress. 08/31/2024 Gastro-esophageal reflux disease without esophagitis (ICD-10 - K21.9) Overall, Kelsie appears quite well. Her reflux remains quite stable on her famotidine. She is not having any new nor worrisome symptoms in regard to the reflux and I advised her to simply continue the famotidine for symptomatic relief. We did review that if the reflux was to begin worsening in frequency and/or severity, we could always put her on another trial of a PPI. I do not think she needs any endoscopy at this time. We did review that obviously watching her diet and weight would be a good thing for her overall health, as well as specifically for the reflux symptoms. I did recommend a follow-up screening colonoscopy as her last exam was over 10 years ago. We did review the rationale for this in regard to colon cancer prevention. Full consent has been taken for this, including risks of bleeding and perforation. The procedure will be done with monitored anesthesia care. She was given the below instructions regarding adjustment of some of her medications for the procedure. Due to her 's recent diagnosis of pancreatic cancer and his need for chemotherapy for the next 4 months or so, as well as possible subsequent surgery, we are going to plan to do her colonoscopy in the Fall. I do not think there is any particular urgency to her colonoscopy at this time as she has no particular GI symptoms and there is no significant family history of colorectal cancer. Kelsie was comfortable with this plan. Thank you again for allowing me to participate in Kelsie's care. I shall continue to keep you advised of her progress. 08/31/2024 Abdominal actinomycosis (ICD-10 - A42.1) Overall, Kelsie appears quite well. Her reflux remains quite stable on her famotidine. She is not having any new nor worrisome symptoms in regard to the reflux and I advised her to simply continue the famotidine for symptomatic relief. We did review that if the reflux was to begin worsening in frequency and/or severity, we could always put her on another trial of a PPI. I do not think she needs any endoscopy at this time. We did review that obviously watching her diet and weight would be a good thing for her overall health, as well as specifically for the reflux symptoms. I did recommend a follow-up screening colonoscopy as her last exam was over 10 years ago. We did review the rationale for this in regard to colon cancer prevention. Full consent has been taken for this, including risks of bleeding and perforation. The procedure will be done with monitored anesthesia care. She was given the below instructions regarding adjustment of some of her medications for the procedure. Due to her 's recent diagnosis of pancreatic cancer and his need for chemotherapy for the next 4 months or so, as well as possible subsequent surgery, we are going to plan to do her colonoscopy in the Fall. I do not think there is any particular urgency to her colonoscopy at this time as she has no particular GI symptoms and there is no significant family history of colorectal cancer. Kelsie was comfortable with this plan. Thank you again for allowing me to participate in Kelsie's care. I shall continue to keep you advised of her progress. Plan Of Treatment Pending Test Test Name Order Date COLONOSCOPY 08/31/2024 Future Test Test Name Order Date UPPER GI ENDOSCOPY 05/15/2015 Next Appt Details Provider Name:Zurdo Dyer , 03/27/2025 07:30:00 AM, [address] [facility] , [place], [place], [phone], Insurance Providers Payer Name Payer Address Payer Phone Subscriber Number Group Number Insured Name Patient Relationship to Insured Coverage Start Date Coverage End Date MEDICARE OF [place] [address] [facility] [address] [id number] KELSIE FERNANDEZ Self - patient is the insured 0 [employer] CLAIMS [address] [place] [address] [id number] KELSIE FERNANDEZ Self - patient is the insured Medical (General) History Medical History History ICD Code Last EGD 12/2011-no Reynolds's mucosa seen--indefinite dysplasia within the Reynolds's mucosa seen on previous EGD's 2006, 2007, and in 2009 GERD with an associated small hiatal her jatin Reynolds's esophagus as per #1 Shaikh Parkinson White Syndrome Broken foot Denies [place],CVA,renal disease Fatty liver with slight incr ease of LFT's--AST 32 and ALT 62 in 04/2013 and AST of 27 and ALT of 48 in October 2012--her previous liver workup was negative including viral serologies, iron studies, and autoimmune studies--she has not required a liver biopsy-previous abdominal ultrasound in 2005 revealed a probable fatty liver, was otherwise negative Hyperlipidemia Negative colonoscopy in 09/2003 except hy perplastic polyps HTN Negative colonoscopy in 09/08 14--no polyps, ? of ileitis but biopsies were negative, diverticulosis Hypertension, benign NIDDM EGD 2015 small HH, no Reynolds's, no esop hagitis Reactive airways disease when sick wit h a URI Surgical History Surgery Date(Month/Year) Toe surgery Cataracts Bilateral knee replacements Eye surgery -correct vision Rectal fissures
--- OUTSIDE RECORDS SUMMARY | 2024-10-08 17:34 | XMS_ITS | Patient Health Record ---
Author Organization [facility] [place] Address [address] [facility] Melquiades [place] [address] Care Team Providers Care Chain Maker Hand Name Role Phone Jaiden Chauhan MD Primary Care Provider Unavaila vida Fields Mildred Unavailable [phone] Kisha Chandler Unavailable [phone] Allergies Allergen (clinical drug ingredient) Drug/Non Drug Allergy documented on EMR Reaction Allergy Type Onset Date Status Adhesive Unknown Allergy Active Latex Latex rash Allergy Active Results Component Value Reference Range Notes HEMOGLOBIN A1C (GLYCOHEMOGLO BIN) Reviewed date:12/31/2023 02:32:23 PM Interpretation: Performing Lab: Notes/Report: HEMOGLOBIN A1C (HH) 6.2 X ray : Foot, right 3V Reviewed date:10/30/2023 11:44:35 AM Interpretation:See Examination above Performing Lab: Notes/Report: See Examination above Reason For Referral No Information Medications Medication SIG (Take, Route, Frequency, Duration) Notes Start Date End Date Status Probiotic Not-Taking Omeprazole 20 MG 1 capsule 30 minutes before morning meal Orally 4 times a week for 30 days Not-Taking Flovent HFA inhaler Not-Taki ng metFORMIN HCl ER 500 MG 1 tablet with evening meal Orally Once a day for 30 day(s) off for a week Not-Taking Acetaminophen Extra Strength 500 MG 2 tablet as needed Orally every 6 hrs for 15 days 10/19/2023 Not-Taking Gabapentin 300 MG 1 capsule Orally at bedtime for 15 days 10/19/2023 Not-Taking Ibuprofen 800 MG 1 tablet every Orally every 8 hrs for 10 days 10/19/2023 Not-Taking Amoxicillin Dental Appointments Active Baby Aspirin Active Fiber Complete as directed Orally Not-Taking Atorvastatin Calcium 20 MG 1 tablet Orally Once a day for 30 day(s) Not-Taking Furosemide 20 MG 1 tablet Orally Once a day Active Rybelsus 3 MG as directed Orally Once a day Active Fish Oil 1000 MG 1 capsule with a meal Orally Once a day for 30 day(s) Not-Taking Carvedilol 6.25 MG 1 tablet with food Orally Twice a day Active Simvastatin 20 MG 1 tablet every evening Orally Once a day for 30 day(s) Not-Taking amLODIPine Besylate 2.5 MG as directed Orally Once a day Active Omeprazole 40 MG 1 capsule Orally Once a day for 30 day(s) Not-Taking Multi Vitamin - 1 tablet Orally Once a day for 30 day(s) Active Magnesium 250 MG as directed Orally Once a day Active Losartan Potassium 50 MG 1 tablet Orally Once a day for 30 day(s) Not-Taking Extra Depth Orthopedic Shoes (1 Pair) with Customized Heat Molded Multidensity Innersoles (3 Pair) as directed Dx: NIDDM (E11.9), Hammertoe Foot Deformity (M20.41,M20.42), Preulcerative Skin Lesion(s) (L85.1) 12/31/2023 Active Metoprolol Succinate ER 25 MG 1 tablet Orally Once a day for 30 day(s) Not-Taking Pepcid Active Aleve 220 MG 1 tablet Orally every 12 hrs Not-Taking Flonase Active Vitamin B Complex as directed Orally Not-Taking ProAir HFA prn Active Olmesartan Medoxomil 40 MG 1 tablet Orally Once a day for 30 day(s) Active Extra Depth Orthopedic Shoes (1 Pair) with Customized Heat Molded Multidensity Innersoles (3 Pair) as directed Dx: NIDDM (E11.9), Hammertoe Foot Deformity (M20.41,M20.42), Preulcerative Skin Lesion(s) (L85.1) 10/09/2022 Active Vitamin D3 50 MCG (1999 UT) 1 capsule Orally Once a day Active Immunizations Vaccine Route Administration Date Status Comme nts COVID-19 Moderna Vaccine Unknown 04/29/2021 Administered 1st 07/13/2020 2nd 08/17/2020 Influenza Unknown 04/15/2021 Administered Influenza Unknown 03/24/2022 Administered Influenza Unknown 02/20/2023 Administered Social History Tobacco Use: Social History Observation [...] Are you an other tobacco user? No Problems Problem Type SNOMED Code ICD Code Onset Dates Problem Status W/U Status Risk Notes Problem Acquired hammer toe of right foot (3291838861616545 ) Other hammer toe(s) (acquired), right foot (M20.41) Active confirmed Problem Acquired hammer toe of left foot (1960662788623662 ) Other hammer toe(s) (acquired), left foot (M20.42) Active confirmed Problem Localized, primary osteoarthritis of the ankle and/or foot (732145838) Primary osteoarthritis, right ankle and foot (M19.071) Active confirmed Problem Acquired hallux valgus (91125664) Hallux valgus (acquired), right foot (M20.11) Active confirmed Problem Acquired hammer toe of right foot (3699963863832211 ) Other hammer toe(s) (acquired), right foot (M20.41) Active confirmed Problem Acquired hammer toe of left foot (3087279623549694 ) Other hammer toe(s) (acquired), left foot (M20.42) Active confirmed Problem Type II diabetes mellitus without complication (496449710) Type 2 diabetes mellitus without complications (E11.9) Active confirmed Problem Localized, primary osteoarthritis of the ankle and/or foot (037613308) Osteoarthritis of right ankle and foot (M19.071) Active confirmed Problem Localized, primary osteoarthritis of the ankle and/or foot (649751892) Osteoarthritis of left ankle and foot (M19.072) Active confirmed Vital Signs Blood pressure diastolic 60 mm Hg 12/31/2023 Height 5ft1in in 12/31/2023 Blood pressure systolic 126 mm Hg 12/31/2023 Weight 231 lbs 12/31/2023 BMI 43.64 kg/m2 12/31/2023 Procedures Procedure Date Ordered Date Performed Result Body Sit e 36946-KXXMABM NAIL, 1-5 12/31/2023 N/A Encounters Encounter Location Date Provider Diagnosis Surgery [facility] ([facility]KATHERINE) [address] [place] [address] 10/28/2023 Mildred Black [facility] [address] 10/19/2023 Mildred Black Type 2 diabetes mellitus without complications E11.9 ; Ganglion, right ankle and foot M67.471 and Pain in right toe(s) M79.[address] [address] 10/30/2023 Mildred Black Type 2 diabetes mellitus without complications E11.9 ; Ganglion, right ankle and foot M67.471 ; Pain in right toe(s) M79.674 ; Hypertrophy of bone M89.30 and Exostosis of toe M89.8X7 [address] [address] 11/05/2023 Mildred Black Type 2 diabetes mellitus without complications E11.9 ; Ganglion, right ankle and foot M67.471 ; Pain in right toe(s) M79.674 ; Hypertrophy of bone M89.30 and Exostosis of toe M89.8X7 [address] [address] 11/13/2023 Kisha Chandler Type 2 diabetes mellitus without complications E11.9 ; Ganglion, right ankle and foot M67.471 ; Hypertrophy of bone M89.30 and Exostosis of toe M89.8X7 [address] [address] 11/19/2023 Mildred Black Type 2 diabetes mellitus without complications E11.9 ; Ganglion, right ankle and foot M67.471 ; Hypertrophy of bone M89.30 and Exostosis of toe M89.8X7 [address] [address] 12/31/2023 Mildred Fields Ganglion, right ankl e and foot M67.471 ; Other hammer toe(s) (acquired), right foot M20.41 ; Type 2 diabetes mellitus without complications E11.9 ; Pain in right foot M79.671 ; Tinea unguium B35.1 ; Pain in left toe(s) M79.675 ; Pain in right toe(s) M79.674 and Other hammer toe(s) (acquired), left foot M20.42 [facility] [place] [address] [place] [address] 10/29/2023 Mildred Fields Assessments Encounter Date Diagnosis (ICD Code) Assessment Notes Treatment Notes Treatment Clinical Notes Section Notes 10/19/2023 Ganglion, right ankle and foot (ICD-10 - M67.471) 10/19/2023 Type 2 diabetes mellitus without complications (ICD-10 - E11.9) 10/30/2023 Ganglion, right ankle and foot (ICD-10 - M67.471) 10/30/2023 Type 2 diabetes mellitus without complications (ICD-10 - E11.9) 11/05/2023 Type 2 diabetes mellitus without complications (ICD-10 - E11.9) 11/13/2023 Type 2 diabetes mellitus without complications (ICD-10 - E11.9) 11/19/2023 Type 2 diabetes mellitus without complications (ICD-10 - E11.9) 12/31/2023 Other hammer toe(s) (acquired), right foot (ICD-10 - M20.41) Patient Educated with: DIABETIC FOOT CARE INSTRUCTIONS.p df (DIABETIC FOOT CARE INSTRUCTIONS.p df) 12/31/2023 Ganglion, right ankle and foot (ICD-10 - M67.471) 12/31/2023 Type 2 diabetes mellitus without complications (ICD-10 - E11.9) 11/13/2023 Hypertrophy of bone (ICD-10 - M89.30) 11/13/2023 Ganglion, right ankle and foot (ICD-10 - M67.471) 11/19/2023 Ganglion, right ankle and foot (ICD-10 - M67.471) 11/05/2023 Ganglion, right ankle and foot (ICD-10 - M67.471) 10/30/2023 Pain in right toe(s) (ICD-10 - M79.674) 10/19/2023 Pain in right toe(s) (ICD-10 - M79.674) 10/30/2023 Hypertrophy of bone (ICD-10 - M89.30) 11/05/2023 Pain in right toe(s) (ICD-10 - M79.674) 11/13/2023 Exostosis of toe (ICD-10 - M89.8X7) 12/31/2023 Pain in right foot (ICD-10 - M79.671) 11/19/2023 Hypertrophy of bone (ICD-10 - M89.30) 11/19/2023 Exostosis of toe (ICD-10 - M89.8X7) 12/31/2023 Tinea unguium (ICD-10 - B35.1) 11/05/2023 Hypertrophy of bone (ICD-10 - M89.30) 10/30/2023 Exostosis of toe (ICD-10 - M89.8X7) 11/05/2023 Exostosis of toe (ICD-10 - M89.8X7) 12/31/2023 Pain in left toe(s) (ICD-10 - M79.675) 12/31/2023 Pain in right toe(s) (ICD-10 - M79.674) 12/31/2023 Other hammer toe(s) (acquired), left foot (ICD-10 - M20.42) Plan Of Treatment Pending Test Test Name Order Date X ray : Foot, right 2V 12/31/2011 Tc99 3 phase Bone Scan 08/27/2011 X ray : Foot, right 3V 08/27/2011 X ray : Foot, right 3V 10/27/2011 X ray : Foot, right 3V 11/12/2011 X ray : Foot, right 3V 12/04/2011 X ray : Foot, right 3V 02/11/2012 28968-NIOXSHP NAIL, 6 OR MORE 09/09/2021 66753-JWGAOIA NAIL, 6 OR MORE 12/19/2021 84426-KSGDKTH NAIL, 6 OR MORE 03/24/2022 00489-BPGNCZB NAIL, 6 OR MORE 07/10/2022 35696-GQATTLW NAIL, 6 OR MORE 10/09/2022 54989-EKZUYFD NAIL, 6 OR MORE 02/09/2023 34366-[id number] NAIL, 6 OR MORE 05/07/2023 84532-WEBXXRX NAIL, 1-5 10/01/2023 98354-[id number] NAIL, 1-5 12/31/2023 22919,V4001-NRR TENDON SHEATH/LIGAMENT 0 09/08/2011- Ganglion Cyst Injection/Aspiratio n 06/06/2021- Ganglion Cyst Injection/Aspiratio n 09/09/2021- Ganglion Cyst Injection/Aspiratio n 02/09/2023- Ganglion Cyst Injection/Aspiratio n 03/24/2022- Ganglion Cyst Injection/Aspiratio n 12/19/2021- Ganglion Cyst Injection/Aspiratio n 05/07/2023 Next Appt Details Provider Name:Mildred Early Donnie , 01/02/2025 10:00:00 AM, [address] [place] [address], [phone], Insurance Providers Payer Name Payer Address Payer Phone Subscriber Number Group Number Insured Name Patient Relationship to Insured Coverage Start Date Coverage End Date Medicare National Govt [facility] [address] [place] [address] [id number] Kelsie Shine Self - patient is the insured [facility] [address] [place] [address] [phone] [id number] Kelsie Shine Self - patient is the insured Medical (General) History Medical History History ICD Code Arthritis Anxiety Asthma Back, hip, knee pain Broken bones CAD ( cholesterol) Crohn's/Colitis Measles Mumps Chicken Pox High Blood Pressure Joint/Bone Implants,Screws Reflux ( GERD) Scarlet fever Sinusitis Vascular Phlebitis (clots) Warts type II diabetes Arthralgia 719.40 Plantar Fasciitis 728.71 Pain in Limb 729.5 Myositis 729.1 Bursitis 727.3 Surgical History Surgery Date(Month/Year) section 03/07/1991 Left knee replacement 07/22/2018 Right Knee rePlacement 11/16/2018 Cardiac Morutor placed 06/11/2020 cortisone injection Ramon upper leg 022 cataract surgery 02/2022 Removal of Cyst Right Hallux 10/28/2023
--- OUTSIDE RECORDS SUMMARY | 2024-10-08 17:34 | XMS_ITS ---
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 Name Role Phone Jaiden Chauhan MD Primary Care Provider Zurdo Stein Unavailable [phone] Allergies Allergen (clinical drug ingredient) Drug/Non Drug Allergy documented on EMR Reaction Allergy Type Onset Date Status Latex latex (uncoded) Unknown Allergy Acti ve REASON FOR VISIT Patient presents today for a colon screening Medications Medication SIG (Take, Route, Frequency, Duration) Notes Start Date End Date Status Furosemide 20 MG 1 tablet Orally Once a day Active Olmesartan Medoxomil 40 MG 1 tablet Oral ly Once a day Active Vitamin D 2000iu Act deyanira Mounjaro 2.5 MG/0.5ML as directed Subcutaneous Active Carvedilol 6.25 MG 1 tablet with food O rally Twice a day Active amLODIPine Besylate 5 MG 1 tablet Orally Once a day Active Famotidine 20 MG 1 tablet at bedtime as needed Orally Once a day Active Atorvastatin Calcium 20 MG 1 tablet Oral ly Once a day Active Magnesium 400 MG as directed Orally Active ProAir RespiClick 108 (90 Base) MCG/ACT 1 puff as needed Inhalation every 4 hrs Active Multi Vitamin - 1 tablet Orally Once a day Active Triamcinolone Acetonide 0.025 % 1 application Externally Once a day Active Aspirin 81 81 MG 1 tablet Orally Once a day Active Social History Alcohol Screen Question Answer Notes Did you have a drink contain ing alcohol in the past year? Yes How often did you have a dri nk containing alcohol in the past year? 4 or more times a week (4 points) How many drinks did you have on a typical day when you were drinking in the past year? 1 or 2 drinks (0 point) How often did you have 6 or more drinks on one occasion in the past year? Never (0 point) Points 4 Interpretation Positive AUDIT-C (Standard) Question Answer Notes Did you [...] Status Risk Notes Problem Colon cancer screening (639425049) Colon cancer screening (Z12.11) Active confirmed Vital Signs Temperature 97.5 degrees Fahrenheit 09/01/19 25 Blood pressure systolic 001 mm Hg 09/01/19 25 Blood pressure diastolic 01 mm Hg 025 Height 61.50 in 08/31/2024 Weight 235 lbs 08/31/2024 BMI 43.68 kg/m2 08/31/2024 Procedures Procedure Date Ordered Date Performed Result Body Sit e COLONOSCOPY 08/31/2024 N/A Encounters Encounter Location Date Provider Diagnosis [facility] [address] [facility] [address] [place] [address] 08/31/2024 Zurdo Dyer Gastro-esophageal reflux disease without esophagitis K21.9 ; Colon cancer screening Z12.11 and Abdominal actinomycosis A42.1 Assessments Encounter Date Diagnosis (ICD Code) Assessment Notes Treatment Notes Treatment Clinical Notes Section Notes 08/31/2024 Gastro-esophageal reflux disease without esophagitis (ICD-10 [...] keep you advised of her progress. 08/31/2024 Colon cancer screening (ICD-10 - Z12.11) [...] Test Test Name Order Date COLONOSCOPY 08/31/2024 Next Appt Details Follow Up: prn, Reason: Provider Name:Zurdo Dyer , 03/27/2025 07:30:00 AM, [address] [place] [address] , [place], [place], [id number], Progress Notes * KELSIE FERNANDEZ MDOB:1955 (68 yo F)Acc No.[id number]:08/31/2024 Progress Notes Patient:?KELSIE FERNANDEZ Provider:?Zurdo Dyer MD :1955???Age:68 Y???Sex:Female D ate:08/31/2024 Address: [address] [place], [place] Pcp:Jaiden Chauhan MD Subjective: * Chief Complaints: * ???Patient presents today fo r a colon screening * HPI: ???incontinence:? I saw Kelsie in consultation today in regard to further evaluation of her chronic gastroesophageal reflux with previous biopsies revealing Reynolds's esophagus, as well as need for colorectal cancer screening. I last saw Kelsie in 2015, at which time she underwent a follow-up upper endoscopy which was again negative for any evidence of Reynolds's mucosa or esophagitis. Biopsies from the gastroesophageal junction were again negative for any intestinal metaplasia or dysplasia. She was noted to have her small hiatal hernia. At that point I felt that she would not need any further surveillance upper endoscopies as previous upper endoscopies had also been negative for Reynolds's esophagus since the original diagnosis many years ago. She had always been on omeprazole 20 mg daily but this was changed to 20 mg famotidine twice a day at some point due to some muscle cramping she was having. She reports that she has been doing well on famotidine without any significant heartburn, dysphagia, anorexia, early satiety, nausea, vomiting, nor reflux type symptoms. Her muscle cramps also resolved although it was never entirely clear as to whether or not they were truly related to the PPI. She describes that her bowel movements have been regular and without any signs of bleeding. She denies any abdominal pain, jaundice, nor unintentional weight loss. She denies any known family history of colorectal cancer. Kelsie's last colonoscopy in 2013 was negative for any adenomatous polyps, as was a previous screening colonoscopy in 2003. * ROS:?General/Constitutional:?Change in appetite?denies.?Chills?denies.?Fatigue?denies.?Ophthalmologic:?Patient denies? Negative..?ENT:?Patient denies?Negative..?Respiratory:?Patient denies?No coughing/hemoptysis..?Cardiovascular:?Patient denies? No chest pain/orthopnea..?Gastrointestinal:?Comments?See HPI for details.?Genitourinary:?Patient denies? No dysuria/hematuria..?Musculoskeletal:?Patient denies? No specific arthralgias/myalgias..?Skin:?Patient denies?No rash/pruritus..?Neurologic:?Patient denies? No headaches/seizures..?Psychiatric:?Patient denies?Negative..? * Medical History:? * Surgical History:?Rectal fis sures Eye surgery -correct vision Bilateral knee replacements Cataracts Toe surgery * Hospitalization/Major Diagno stic Procedure:?No Hospitalization History. * Family History:?Father: dece ased 82 yrs, father with colon polyps in his 80.?Mother: 52 yrs, congenital heart disease, diagnosed with Heart disease.?Siblings: alive 65 yrs, brother bladder cancer/ blockage of coraided artery .? No colorectal cancer.? No family history of liver cancer. * Social History:?Tobacco Use:?Tobacco Use/Smoking?Are you a: former smoker , How long has it been since you last smoked?: > 10 years.?Drugs/Alcohol:?Alcohol Screen?Did you have a drink containing alcohol in the past year??Yes,?How often did you have a drink containing alcohol in the past year??4 or more times a week (4 points),?How many drinks did you have on a typical day when you were drinking in the past year??1 or 2 drinks (0 point),?How often did you have 6 or more drinks on one occasion in the past year??Never (0 point),?Points?4,?Interpretation?Positive.?Miscellaneous:?Marital status: with 3 children-- diagnosed with pancreatic cancer in 07/2024. 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 ???Drug/Alcohol:?AUDIT-C (Standard)?Did you have a drink containing alcohol in the past year??Yes,?How often did you have a drink containing alcohol in the past year??2 to 4 times a month (2 points),?How many drinks did you have on a typical day when you were drinking in the past year??1 or 2 drinks (0 point),?How often did you have six or more drinks on one occasion in the past year??Never (0 point),?Points?2,?Interpretation?Negative.?Nonsmoker; 1-2 glasses of wine occasionally. * Medications:?TakingProAir Re spiClick 108 (90 Base) MCG/ACT Aerosol Powder Breath Activated 1 puff as needed Inhalation every 4 hrs Aspirin 81 81 MG Tablet Delayed Release 1 tablet Orally Once a day Triamcinolone Acetonide 0.025 % Cream 1 application Externally Once a day Multi Vitamin - Tablet 1 tablet Orally Once a day Magnesium 400 MG Tablet as directed Orally Atorvastatin Calcium 20 MG Tablet 1 tablet Orally Once a day Famotidine 20 MG Tablet 1 tablet at bedtime as needed Orally Once a day amLODIPine Besylate 5 MG Tablet 1 tablet Orally Once a day Carvedilol 6.25 MG Tablet 1 tablet with food Orally Twice a day Olmesartan Medoxomil 40 MG Tablet 1 tablet Orally Once a day Furosemide 20 MG Tablet 1 tablet Orally Once a day Mounjaro 2.5 MG/0.5ML Solution Auto-injector as directed Subcutaneous Vitamin D 2000iu Taking ProAir RespiClick 108 (90 Base) MCG/ACT Aerosol Powder Breath Activated 1 puff as needed Inhalation every 4 hrs Taking Aspirin 81 81 MG Tablet Delayed Release 1 tablet Orally Once a day Taking Triamcinolone Acetonide 0.025 % Cream 1 application Externally Once a day Taking Multi Vitamin - Tablet 1 tablet Orally Once a day Taking Magnesium 400 MG Tablet as directed Orally Taking Atorvastatin Calcium 20 MG Tablet 1 tablet Orally Once a day Taking Famotidine 20 MG Tablet 1 tablet at bedtime as needed Orally Once a day Taking amLODIPine Besylate 5 MG Tablet 1 tablet Orally Once a day Taking Carvedilol 6.25 MG Tablet 1 tablet with food Orally Twice a day Taking Olmesartan Medoxomil 40 MG Tablet 1 tablet Orally Once a day Taking Furosemide 20 MG Tablet 1 tablet Orally Once a day Taking Mounjaro 2.5 MG/0.5ML Solution Auto- injector as directed Subcutaneous Taking Vitamin D 2000iu DiscontinuedLisinopril 10mg Simvastatin 20mg Fish Oil 1200mg Aleve 220mg 1 QAM Calcium 1200mg Omeprazole 20 MG Capsule Delayed Release TAKE 1 CAPSULE BY MOUTH DAILY. Medication List reviewed and reconciled with the patientDiscontinued Lisinopril 10mg Discontinued Simvastatin 20mg Discontinued Fish Oil 1200mg Discontinued Aleve 220mg 1 QAM Discontinued Calcium 1200mg Discontinued Omeprazole 20 MG Capsule Delayed Release TAKE 1 CAPSULE BY MOUTH DAILY. Medication List reviewed and reconciled with the patient * Allergies:?latexyes[Allergie s Verified] Objective: * Vitals:?Wt: 235 lbs, Ht: 61. 50 in, BMI: 43.68 Index, BP: 001/01 mm Hg, Temp: 97.5, Wt-k.6. * Examination: ???General Examination: ?GENERAL APPEARANCE:?pleasant, well nourished, well developed, in no acute distress.?EYES:?sclera non-icteric.?ORAL CAVITY:?mucosa moist.?NECK/THYROID:?no cervical lymphadenopathy, neck supple.?SKIN:?nonjaundiced, no spider angiomata..?HEART:?S1, S2 normal.?LUNGS:?clear to auscultation bilaterally.?ABDOMEN:?normal bowel sounds, no guarding or rigidity, no hepatosplenomegaly, no masses palpable, soft, nontender, nondistended..?EXTREMITIES:?no edema.?NEUROLOGIC:?alert and oriented.? Assessment: * Assessment: 1.?Gastro-esophageal reflux disease without esophagitis - K21.9 (Primary)???2.?Colon cancer screening - Z12.11???3.?Abdominal actinomycosis - A42.1??? Overall, Kelsie appears quite well. Her reflux [...] well as specifically for the reflux symptoms. ?I did recommend a follow-up screening colonoscopy as [...] to keep you advised of her progress. Plan: * Treatment: * Procedure Codes:?64959 DIAGN OSTIC [id number] RCMND FLW-UP 10 YRS [id number] COLORECTAL CA SCREEN DOC [id number] TOBACCO [id number] BP SCR NOT PRFRM REC REASON NOS * Preventive Medicine:? ??Counseling:?Care goal follow-up plan:?Above Normal BMI Follow-up?Dietary management education, guidance, and counseling,?BMI management provided?Yes.? ??Urinary Incontinence:?Urinary Incontinence?Assessment:?Absent,?Plan of care documented:?No, reason not specified.? ??Screenings:?Fall Risk Screening?Fall Risk Assessment:?One fall with injury in the past year,?Screening:?One fall with injury in the past year,?Assessment: Not performed, no reason specified,?Plan of Care:?Not documented, no reason specified.? * Follow Up:?prn * * Sign off status: Completed true * Provider:?Zurdo Dyer MD Date:? 025 Generated for Yanna boss/Melanie/eTransmitting on:?10/08/2024 05:34 PM EDT History and Physical Notes * Examination Category Sub-Category Detail Notes Category Not es General Examination GENERAL APPEARANCE: pleasant , well nourished, well developed, in no acute distress EYES: sclera non-icteric NECK/THYROID: no cervical lymphade nopathy, neck supple HEART: S1, S2 normal LUNGS: clear to auscultatio n bilaterally ABDOMEN: normal bowel sounds, no guarding or rigidity, no hepatosplenomegaly, no masses palpable, soft, nontender, nondistended. NEUROLOGIC: alert and oriented SKIN: nonjaundiced, no spi tay angiomata. EXTREMITIES: no edema ORAL CAVITY: mucosa moist
--- OUTSIDE RECORDS SUMMARY | 2024-10-08 17:34 | XMS_ITS ---
Author Organization [facility] Address [address] [place] [address] Care Team Providers Care Applied Exercise Physiologist Name Role Phone Jaiden Chauhan MD Primary Care Provider Unavaila ble Black, Mildred Unavailable [phone] Allergies Allergen (clinical drug ingredient) Drug/Non Drug Allergy documented on EMR Reaction Allergy Type Onset Date Status Adhesive Unknown Allergy Active Latex Latex rash Allergy Active REASON FOR VISIT At Risk Footcare, Skin problem(s), Toe Irritation Medications Medication SIG (Take, Route, Frequency, Duration) Notes Start Date End Date Status Simvastatin 20 MG 1 tablet every evening Orally Once a day for 30 day(s) Not-Taking Omeprazole 40 MG 1 capsule Orally Once a day for 30 day(s) Not-Taking Extra Depth Orthopedic Shoes (1 Pair) with Customized Heat Molded Multidensity Innersoles (3 Pair) as directed Dx: NIDDM (E11.9), Hammertoe Foot Deformity (M20.41,M20.42), Preulcerative Skin Lesion(s) (L85.1) 12/31/2023 Active Aleve 220 MG 1 tablet Orally every 12 hrs Not-Taking Vitamin B Complex as directed Orally Not-Taking Losartan Potassium 50 MG 1 tablet Orally Once a day for 30 day(s) Not-Taking Metoprolol Succinate ER 25 MG 1 tablet Orally Once a day for 30 day(s) Not-Taking Fiber Complete as directed Orally Not-Taking Atorvastatin Calcium 20 MG 1 tablet Orally Once a day for 30 day(s) Not-Taking Fish Oil 1000 MG 1 capsule with a meal Orally Once a day for 30 day(s) Not-Taking Probiotic Not-Taking Omeprazole 20 MG 1 capsule 30 minutes before morning meal Orally 4 times a week for 30 days Not-Taking Flovent HFA inhaler Not-Taki ng metFORMIN HCl ER 500 MG 1 tablet with evening meal Orally Once a day for 30 day(s) off for a week Not-Taking Gabapentin 300 MG 1 capsule Orally at bedtime for 15 days 10/19/2023 Not-Taking Acetaminophen Extra Strength 500 MG 2 tablet as needed Orally every 6 hrs for 15 days 10/19/2023 Not-Taking Ibuprofen 800 MG 1 tablet every Orally every 8 hrs for 10 days 10/19/2023 Not-Taking ProAir HFA prn Active Extra Depth Orthopedic Shoes (1 Pair) with Customized Heat Molded Multidensity Innersoles (3 Pair) as directed Dx: NIDDM (E11.9), Hammertoe Foot Deformity (M20.41,M20.42), Preulcerative Skin Lesion(s) (L85.1) 10/09/2022 Active Vitamin D3 50 MCG (1999 UT) 1 capsule Orally Once a day Active Carvedilol 6.25 MG 1 tablet with food Orally Twice a day Active amLODIPine Besylate 2.5 MG as directed Orally Once a day Active Multi Vitamin - 1 tablet Orally Once a day for 30 day(s) Active Magnesium 250 MG as directed Orally Once a day Active Olmesartan Medoxomil 40 MG 1 tablet Orally Once a day for 30 day(s) Active Pepcid Active Flonase Active Amoxicillin Dental [...] rrent non-smoker, but past smoking history unknown Tobacco use other than smoking: Question Answer Notes Are you an other tobacco user? No Vital Signs Height 5ft1in in 12/31/2023 Weight 231 lbs 12/31/2023 BMI 43.64 kg/m2 12/31/2023 Blood pressure systolic 126 mm Hg 12/31/19 24 Blood pressure diastolic 60 mm Hg 024 Procedures Procedure Date Ordered Date Performed Result Body Sit e 22950-NRGVNBK NAIL, 1-5 12/31/2023 N/A Encounters Encounter Location Date Provider Diagnosis [facility] [address] [place] [address] 12/31/2023 Mildred Black Ganglion, right ankl e and foot M67.471 ; Other hammer toe(s) (acquired), right foot M20.41 ; Type 2 diabetes mellitus without complications E11.9 ; Pain in right foot M79.671 ; Tinea unguium B35.1 ; Pain in left toe(s) M79.675 ; Pain in right toe(s) M79.674 and Other hammer toe(s) (acquired), left foot M20.42 Assessments Encounter Date Diagnosis (ICD Code) Assessment Notes Treatment Notes Treatment Clinical Notes Section Notes 12/31/2023 Ganglion, right ankle and foot (ICD-10 - M67.471) 12/31/2023 Other hammer toe(s) (acquired), right foot (ICD-10 - M20.41) Patient Educated with: DIABETIC FOOT CARE INSTRUCTIONS.p df (DIABETIC FOOT CARE INSTRUCTIONS.p df) 12/31/2023 Type 2 diabetes mellitus without complications (ICD-10 - E11.9) 12/31/2023 Pain in right foot (ICD-10 - M79.671) 12/31/2023 Tinea unguium (ICD-10 - B35.1) 12/31/2023 Pain in left toe(s) (ICD-10 - M79.675) 12/31/2023 Pain in right toe(s) (ICD-10 - M79.674) 12/31/2023 Other hammer toe(s) (acquired), left foot (ICD-10 - M20.42) Plan Of Treatment Medication Medication Name Sig Start Date Stop Date Notes Extra Depth Orthopedic Shoes (1 Pair) with Customized Heat Molded Multidensity Innersoles (3 Pair) as directed Dx: NIDDM (E11.9), Hammertoe Foot Deformity (M20.41,M20.42), Preulcerative Skin Lesion(s) (L85.1) 12/31/2023 Treatment Notes Assessment Notes Other hammer toe(s) (acquired), right fo ot Patient Educated with: DIABETIC FOOT CARE INSTRUCTIONS.pdf (DIABETIC FOOT CARE INSTRUCTIONS.pdf) Pending Test Test Name Order Date [id number] NAIL, 1-5 12/31/2023 Next Appt Details Follow Up: prn, Reason: Provider Name:Mildred Fields , 01/02/2025 10:00:00 AM, [address] [facility], [place], [address], Procedure Notes * Category Sub-Category Detail Notes Debride Nails 1-5 Procedure: Nail debrideme nt performed extensively to reduce/remove overall nail length, girth, thickness, subungual debris, and necrotic tissue, by manual and electrical means through the use of a nail nipper and/or dremel, to more viable healthy nail plate or bed tissue 1-5. Silver nitrate used for any petechial bleeding as necessary (32390). Patient chooses , topical antifungal Progress Notes * Kelsie SHINE MDOB:1955 (68 yo F)Acc No.[id number]:12/31/2023 Progress Notes Patient:?Kelsie Shine Provider:?Mildred LINDSAY Fields :1955???Age:68 Y???Sex:Female D ate:12/31/2023 Address:[address] [place] [address] , [facility] [place] Pcp:Jaiden Chauhan MD Subjective: * Chief Complaints: * ???At Risk FootcareSkin prob jorden(s)Toe Irritation * HPI: ???At Risk footcare:?Pt States Last PCP Visit:?Date?08/25/2023 ???Skin problems:?Nature:? cyst .?Location:?1st, Right .?Duration:?several years.?Onset/Cause:?unknown, denies injury.?Course:?improved.?Aggravated by:?any pressure.?Treatments:?aspiration, surgery.?Severity/Quality:?moderate.?Toe pain:?Location:?B/L feet.?Duration:?several years.?Course:?worse.?Aggrevated by:?shoes, any pressure.?Treatments:?change in shoes.? * ROS:?General/Constitutional:?Nausea?denies.?Vomiting?denies.?Hunger Thirst?denies.?Loss appetite?denies.?Chills?denies.?Fatigue?denies.?Fever?denies.?Night Sweats?denies.?Unexplained weight loss?denies.?Unexplained [...] than smoking?Are you an other tobacco user??No * Medications:?TakingBaby Aspi rin Rybelsus 3 MG [...] , Notes: prnTaking Vitamin D3 50 MCG (2000 UT) Capsule 1 [...] Vitals:?Ht: 5ft1in, Wt:231, BMI:43.64, Shoe size: 8, BP:126/60 mm Hg, BS: not taken, Ht-cm: 154.94 cm, Wt-k.78 kg. * ???Past Orders: ???Lab:HEMOGLOBIN A1C (GLYCO HEMOGLOBIN) (Order Date - 11/21/2023) (Collection Date - 11/21/2023) ? Value Reference Range ?HEMOGLOBIN A1C (HH) 6.2 * Examination: ???Ophthalmology Referral: ?DIABETES EYE EXAM?Diabetic Retinopathy Screening:?No ?Findings of Diabetic Eye Exam:?no retinopathy?Neurological: ?SENSORY:?neurological exam reveals intact sensorium, pain sensation normal, vibration sensation intact, pinprick sensation is normal in the lower extremities, anesthesia, burning, tingling, B/L, 5.07 monofilament test performed at plantar aspects of 5 varied sites per foot shows sensation, normal, B/L.?Vascular: ?DP PULSES:?2/4, B/L.?PT PULSES:?2/4, B/L.?Dermatologic: ?SKIN FINDINGS:?Skin shows sign(s) of, RESOLVED??a semi-firm, painful, nontransluscent, nonpulsitile, nonmobile Sub Q tumor? dorsal medial right hallux.?Nails: ?NAILS are:?E , Elongated, overgrown, dystrophic, lytic, greater than 3mm thick, discolored and friable with crumbly malodorous subungual debris, with pain on palpation , T9 , T4.?Orthopedic: ?DIGITAL DEFORMITIES:?Digital contracture, PIPJ, 2-5 B/L, incompl-reducible to push-up test, no over, nor underlapping, with evidence of shoe producing skin irritation.?FOOTWEAR:?worn, non-supportive, shoe gear properties exacerbate patient's foot/toe deformity.?General Examination: ?FOOT EXAM:?Lower Extremity Neurological Exam performed:?Yes ?Footwear Evaluation?Footwear Evaluation performed:?Yes??? Assessment: * Assessment: 1.?Other hammer toe(s) (acqu ired), right foot - M20.41 (Primary), Chronic problem, Worse (4),Rx Management (4)?2.?Ganglion, right ankle and foot - M67.471?3.?Type 2 diabetes mellitus without complications - E11.9?4.?Pain in right foot - M79.671?5.?Tinea unguium - B35.1?6.?Pain in left toe(s) - M79.675?7.?Pain in right toe(s) - M79.674?8.?Other hammer toe(s) (acquired), left foot - M20.42, Chronic problem, Worse (4),Rx Management (4)? Plan: * Treatment: 2.?Tinea unguium?Procedure: [id number] NAIL, 1-5 * Procedures:?Debride Nails 1-5:?Procedure:?Nail debridement performed extensively to reduce/remove overall nail length, girth, thickness, subungual debris, and necrotic tissue, by manual and electrical means through the use of a nail nipper and/or dremel, to more viable healthy nail plate or bed tissue 1-5. Silver nitrate used for any petechial bleeding as necessary (40699). Patient chooses , topical antifungal.? * Procedure Codes:?12923 SHARON TIJERINA, 1-5, Modifiers: XS * Preventive Medicine:? ??Counseling:?Discussion:?-14: Office or other outpatient visit for the evaluation and management of an established patient, which required a medically appropriate history and/or examination and MODERATE level of DECISION MAKING for: 1 OR MORE CHRONIC PROBLEM(S) THATS WORSENING, 2 STABLE CHRONIC PROBLEMS, A NEWLY DIAGNOSED PROBLEM WITH UNCERTAIN PROGNOSIS, AN ACUTE COMPLICATED INJURY WITH MULTIPLE TREATMENT OPTIONS, OR AN ACUTE PROBLEM WITH ACCOMPANYING SYSTEMIC SYMPTOMS, THAT POSE(S) A MODERATE RISK OF MORBIDITY. THIS CONDITION MAY ALSO INCLUDE RX DRUG MANAGEMENT, OR A DECISON FOR MINOR SURGERY. The visit on the day of the encounter encompassed interpreting the data and educating the patient as to the nature of their condition, treatment options available according to their individual PMH, meds, allergies, and overall health/living conditions, as well as any potential risks or complications that may occur from a failure to adhere to, and participate in, the recommended course of therapy. The discussion included a complete verbal, and/or written explanation of the examination results, any x-rays taken, the proposed diagnosis, and outline of the treatment plan. A schedule for future care needs was also explained. The patient verbalized an understanding of the instructions at this time and agreed to be an active participant in their treatment. If the patient should think of any questions or concerns after the visit, I have encouraged the patient to call the office.?BioMech.:?I discussed the Pts foot biomechanics with them and how it relates to their problem,.?Digital Treatment:?HT- I explained to the patient the possible etiologies of Hammertoes, including genetics/foot type/shoegear/activity level/exercise routine and the risks/benefits of all the different treatment options for their pain including: No treatment at all, Rest, Ice, New/supportive/wider/deeper Shoegear, Digital Padding/Strapping/Taping/Bracing/Gel protective sleeves, Foot/Ankle AFO Bracing, Stretching exercises, Deep Tissue Massage, Arch support/shoe inserts with splay metatarsal padding, and Custom orthoses. I insisted that any digital devices be removed daily and not worn overnight for safety. The patient is to carefully examine the toes daily for any skin irritation while using any splinting or padding device. The advantages and disadvantages of each option were discussed and the patients questions re: shoegear, padding, custom vs prefabricated inserts, activity level, and consistency in home treatment regimens for optimal success were answered to their verbally confirmed satisfaction, Rx: Extra Depth Diabetic Shoes with 3 pair of custom heat-molded inserts.? * Follow Up:?prn * Images: * Sign off status: Completed true * Provider:?Mildred Fields DPM Date:?2023 Generated for Yanna boss/Melanie/Khushboo on:?10/08/2024 05:33 PM EDT History and Physical Notes * HPI (History of Present Illness) Category Sub-Category Detail Notes Category Not es Toe pain Location: B/L feet Duration: several years Course: worse Aggravated by: shoes, any pressure Treatments: change in shoes Skin problems Nature: cyst Location: 1st, Right Duration: several years Onset/Cause: unknown, denies inju ry Course: improved Aggravated by: any pressure Treatments: aspiration, surgery Severity/Quality: moderate At Risk footcare Pt States Last PCP Visit: Date: 4 Examination Category Sub-Category Detail Notes Category Not es Neurological SENSORY: neurological exa m reveals intact sensorium, pain sensation normal, vibration sensation intact, pinprick sensation is normal in the lower extremities, anesthesia, burning, tingling, B/L, 5.07 monofilament test performed at plantar aspects of 5 varied sites per foot shows sensation, normal, B/L Dermatologic SKIN FINDINGS: Skin shows sign( s) of, RESOLVED a semi-firm, painful, nontransluscent, nonpulsitile, nonmobile Sub Q tumor dorsal medial right hallux Orthopedic FOOTWEAR EVALUATION: worn, non-s upportive, shoe gear properties exacerbate patient's foot/toe deformity DIGITAL DEFORMITIES: Digital contracture , PIPJ, 2-5 B/L, incompl-reducible to push-up test, no over, nor underlapping, with evidence of shoe producing skin irritation General Examination FOOT EXAM: Lower Extrem ity Neurological Exam performed:: Yes Footwear Evaluation Footwear Evaluation performe d:: Yes Ophthalmology Referral DIABETES EYE EXAM Diabetic Retinopa thy Screening:: No Findings of Diabetic Eye Exam:: no retin opathy Vascular DP PULSES (B): 2/4, B/L PT PULSES (B): 2/4, B/L Nails NAILS are: E , Elongated, o vergrown, dystrophic, lytic, greater than 3mm thick, discolored and friable with crumbly malodorous subungual debris, with pain on palpation , T9 , T4
[2024-10-08 17:47] VITALS: BP 120/44; PULSE 72; RESP 16; TEMP 36.7; O2SAT 98
[2024-10-08 18:05] LABS: Alanine Aminotransferase 27 U/L (0-31); Albumin Level 4.2 g/dL (3.5-5.0); Alkaline Phosphatase 65 U/L (39-117); Anion Gap 14 (12-20); Aspartate Amino Transferase 26 U/L (5-31); Bilirubin Total 0.7 mg/dL (0.0-1.0); Blood Urea Nitrogen 31 mg/dL (9-16); Calcium 9.8 mg/dL (8.4-10.2); Carbon Dioxide 23 mmol/L (22-29); Chloride 107 mmol/L (96-108); Creatinine Clr Calc Pharmacy 49.2; Estimated Glomerular Filt Rate 44; Glucose Random 125 mg/dL (60-115); Potassium 4.3 mmol/L (3.3-5.1); Sodium 140 mmol/L (135-145)
== END 2024-10-08 17:47 | disposition home or self-care (01) ==
PROVIDERS: Emergency Provider Internal Medicine; PCP Internal Medicine
DX: L03.211 Cellulitis of face (principal)
CPT/HCPCS: 36415; 80053; 85025; 96365; 99283; 99284; J2543

== ENCOUNTER 2025-02-05 06:52 | Emergency (ER) | payer MEDICARE, SELFPAY ==
--- NOTE | ~2025-02-05 | CT_ITS ---
CLINICAL HISTORY: syncope and fall CT cervical spine without contrast Comparison: None provided Findings: Vertebral alignment is within normal limits. There is multilevel degenerative disc disease most severe at the C5-6 and C6-7. A large bridging osteophyte is seen at C5-6. No acute fractures or dislocations. Visualized intracranial contents are unremarkable. No cervical fluid collections or masses. Lung apices are clear. There significant facet arthropathy at multiple levels. Uncinate joint arthropathy is noted at C5-6 and C6-7 in particular. IMPRESSION: No acute findings. Degenerative changes as above. This document has been electronically signed by: Jesus Ferreira MD on 02/05/2025 10:35:12
--- NOTE | ~2025-02-05 | XR_ITS ---
CLINICAL HISTORY: fall 3 view right shoulder Comparison: None provided Findings: Bones intact. No dislocations. No significant arthritic change. No erosions. No radiopaque foreign body. IMPRESSION: 1. No acute findings This document has been electronically signed by: Gold Dow MD on 02/05/2025 08:29:23
--- NOTE | ~2025-02-05 | XR_ITS ---
CLINICAL HISTORY: syncope 1 view chest x-ray Comparison: None provided Findings: The lungs are clear. Heart size is normal. No acute fracture. IMPRESSION: 1. No acute findings. This document has been electronically signed by: Gold Dow MD on 02/05/2025 08:30:31
--- NOTE | ~2025-02-05 | CT_ITS ---
CLINICAL HISTORY: syncope CT head without contrast Comparison: None provided Findings: No intra-axial mass, midline shift, hydrocephalus, or acute hemorrhage. There is moderate cortical atrophy. The visualized paranasal sinuses and mastoid air cells are normal. The orbits are within normal limits. There is a large right parieto-occipital scalp hematoma. No skull fracture. IMPRESSION: No acute intracranial process. There is a large right parieto-occipital scalp hematoma. This document has been electronically signed by: Jesus Ferreira MD on 02/05/2025 10:30:01
[2025-02-05 06:53] VITALS: BP 180/74; PULSE 83; RESP 17; TEMP 36.9; O2SAT 98; BMI 43.4
--- OUTSIDE RECORDS SUMMARY | 2025-02-05 07:21 | XMS_ITS | Patient Health Record ---
Author Organization [facility] Address [address] [place] [address] Care Team Providers Care Watch Train Inspector Name Role Phone Jaiden Chauhan MD Primary Care Provider Zurdo Stein Unavailable [phone] Allergies Allergen (clinical drug ingredient) Drug/Non Drug [...] Status Risk Notes Problem Colon cancer screening (Z12.11) Active confirmed Problem [id number] Gastro-esophagea l reflux disease without esophagitis (K21.9) Active confirmed Problem [id number] Barretts esophagus without dysplasia (K22.70) Active confirmed Vital Signs Temperature 97.5 degrees Fahrenheit 08/31/2024 Blood pressure diastolic 01 mm Hg 08/31/2024 Height 61.50 in 08/31/2024 Blood pressure systolic 001 mm Hg 08/31/2024 Weight 235 lbs 08/31/2024 BMI 43.68 kg/m2 08/31/2024 Procedures Procedure Date Ordered Date Performed Result Body Sit e COLONOSCOPY 08/31/2024 N/A Encounters Encounter Location Date Provider Diagnosis [facility] [address] [place] [address] 08/31/2024 Zurdo Dyer Gastro-esophageal reflux disease without [...] ENDOSCOPY 05/15/2015 Next Appt Details Provider Name:Zurdo Jordan Manisha , 03/27/2025 07:30:00 AM, [address] [place] [address] , [place], [place], [phone], Insurance Providers Payer Name Payer Address Payer Phone Subscriber Number Group Number Insured Name Patient Relationship to Insured Coverage Start Date Coverage End Date MEDICARE OF [place] [address] [place] [address] [id number] KELSIE FERNANDEZ Self - patient is the insured 0 [employer] ATTN CLAIMS [address] [place] [address] [id number] KELSIE FERNANDEZ Self - patient is the insured Medical (General) History Medical History History ICD Code Last EGD 12/2011-no Reynolds's mucosa seen--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
--- OUTSIDE RECORDS SUMMARY | 2025-02-05 07:22 | XMS_ITS | Patient Health Record ---
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 Name Role Phone Jaiden Cahuhan MD Primary Care Provider Mildred Oreilly Unavailable [phone] Allergies Allergen (clinical drug ingredient) Drug/Non Drug Allergy documented on EMR Reaction Allergy Type Onset Date Status Adhesive Unknown Allergy Active Latex Latex rash Allergy Active Results Component Value Reference Range Notes X ray : Foot, left 3V Reviewed date:01/02/2025 07:26:44 PM Interpretation:See Examination above Performing Lab: Notes/Report: See Examination above X ray : Foot, right 3V Reviewed date:01/02/2025 07:26:32 PM Interpretation:See Examination above Performing Lab: Notes/Report: See Examination above HEMOGLOBIN A1C (GLYCOHEMOGLO BIN) Reviewed date:01/02/2025 09:59:22 AM Interpretation: Performing Lab: Notes/Report: HEMOGLOBIN A1C % (HH) 5.4 Reason For Referral No Information Medications Medication SIG (Take, Route, Frequency, Duration) Notes Start Date End Date Status Pepcid Active Ibuprofen 800 MG 1 tablet every Orally every 8 hrs; Duration: 10 days 10/19/2023 Not-Taking Flonase Active Amoxicillin Dental Appointments Active Furosemide 20 MG 1 tablet Orally Once a day Active Rybelsus 3 MG as directed Orally Once a day Not-Taking Baby Aspirin Active Mounjaro 2.5 MG/0.5ML as directed Subcutaneous Active Famotidine 20 MG 1 tablet at bedtime as needed Orally Once a day Active Fish Oil 1000 MG 1 capsule with a meal Orally Once a day; Duration: 30 day(s) Not-Taking Fiber Complete as directed Orally Not-Taking Atorvastatin Calcium 20 MG 1 tablet Orally Once a day; Duration: 30 day(s) Active Flovent HFA inhaler Not-Taki ng metFORMIN HCl ER 500 MG 1 tablet with evening meal Orally Once a day; Duration: 30 day(s) off for a week Not-Taking Probiotic Not-Taking Omeprazole 20 MG 1 capsule 30 minutes before morning meal Orally 4 times a week; Duration: 30 days Not-Taking Gabapentin 300 MG 1 capsule Orally at bedtime; Duration: 15 days 10/19/2023 Not-Taking Metoprolol Succinate ER 25 MG 1 tablet Orally Once a day; Duration: 30 day(s) Not-Taking Vitamin B Complex as directed Orally Not-Taking Losartan Potassium 50 MG 1 tablet Orally Once a day; Duration: 30 day(s) Not-Taking Extra Depth Orthopedic Shoes (1 Pair) with Customized Heat Molded Multidensity Innersoles (3 Pair) as directed Dx: NIDDM (E11.9), Hammertoe Foot Deformity (M20.41,M20.42), Preulcerative Skin Lesion(s) (L85.1) 10/09/2022 Active Vitamin D3 50 MCG (2000 UT) 1 capsule Orally Once a day Active ProAir HFA prn Active Extra Depth Orthopedic Shoes (1 Pair) with Customized Heat Molded Multidensity Innersoles (3 Pair) as directed Dx: NIDDM (E11.9), Hammertoe Foot Deformity (M20.41,M20.42), Preulcerative Skin Lesion(s) (L85.1) Active Olmesartan Medoxomil 40 MG 1 tablet Orally Once a day; Duration: 30 day(s) Active Multi Vitamin - 1 tablet Orally Once a day; Duration: 30 day(s) Active Magnesium 250 MG as directed Orally Once a day Active Simvastatin 20 MG 1 tablet every evening Orally Once a day; Duration: 30 day(s) Not-Taking Carvedilol 6.25 MG 1 tablet with food Orally Twice a day Active Omeprazole 40 MG 1 capsule Orally Once a day; Duration: 30 day(s) Not-Taking amLODIPine Besylate 2.5 MG as directed Orally Once a day Active Aleve 220 MG 1 tablet Orally every 12 hrs Not-Taking Acetaminophen Extra Strength 500 MG 2 tablet as needed Orally every 6 hrs; Duration: 15 days 10/19/2023 Not-Taking Immunizations Vaccine Route Administration Date Status Comme nts Influenza Unknown 04/15/2021 Administered Influenza Unknown 03/24/2022 Administered Influenza Unknown 02/20/2023 Administered Influenza Unknown 10/26/2024 Administered COVID-19 Moderna Vaccine Unknown 04/29/2021 Administered 1st 07/13/2020 2nd 08/17/2020 Social History Tobacco Use: Social History Observation Description Date Details (start date - stop date) Never Smoker NA - NA Tobacco use other than smoking: Question Answer Notes Are you an other tobacco user? No Tobacco Control (Standard) Question Answer Notes Tobacco use: Nonsmoker Additional Findings: Tobacco non-user Current no nsmoker AUDIT-C (Standard) Question Answer Notes Did you [...] the past year? Never (0 point) Points 1 Interpretation Negative Problems Problem Type SNOMED Code ICD Code Onset Dates Problem Status W/U Status Risk Notes Problem Acquired hammer toe of right foot (721006632403146 5) Other hammer toe(s) (acquired), right foot (M20.41) Active confirmed Problem Acquired hammer toe of left foot (474636164126555 3) Other hammer toe(s) (acquired), left foot (M20.42) Active confirmed Problem Type II diabetes mellitus without complication (287715438) Type 2 diabetes mellitus without complications (E11.9) Active confirmed Problem Acquired right hallux rigidus (652208703496650 ) Hallux rigidus of right foot (M20.21) Active confirmed Problem Plantar fasciitis of left foot (581102101530124 01) Plantar fasciitis of left foot (M72.2) Active confirmed Problem 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671 ; Tinea unguium B35.1 ; Pain in left toe(s) M79.675 ; Pain in right toe(s) M79.674 ; Pain in left foot M79.672 ; Plantar fasciitis of left foot M72.2 ; Calcaneal spur, left foot M77.32 ; Interstitial myositis of left foot M60.172 ; Bursitis of left foot M77.52 and Hallux rigidus of right foot M20.21 Assessments Encounter Date Diagnosis (ICD Code) Assessment Notes Treatment Notes Treatment Clinical Notes Section Notes 01/02/2025 Other hammer toe(s) (acquired), right foot (ICD-10 - M20.41) Patient Educated with: DIABETIC FOOT CARE INSTRUCTIONS.p df (DIABETIC FOOT CARE INSTRUCTIONS.p df) 01/02/2025 Other hammer toe(s) (acquired), left foot (ICD-10 - M20.42) 01/02/2025 Type 2 diabetes mellitus without complications (ICD-10 - E11.9) 01/02/2025 Pain in right foot (ICD-10 - M79.671) 01/02/2025 Tinea unguium (ICD-10 - B35.1) 01/02/2025 Pain in left toe(s) (ICD-10 - M79.675) 01/02/2025 Pain in right toe(s) (ICD-10 - M79.674) 01/02/2025 Pain in left foot (ICD-10 - M79.672) 01/02/2025 Plantar fasciitis of left foot (ICD-10 - M72.2) Patient Educated with: HEEL CORD STRETCHES.pdf (HEEL CORD STRETCHES.pdf) Patient Educated with: RICE THERAPY.pdf (RICE THERAPY.pdf) 01/02/2025 Calcaneal spur, left foot (ICD-10 - M77.32) 01/02/2025 Interstitial myositis of left foot (ICD-10 - M60.172) 01/02/2025 Bursitis of left foot (ICD-10 - M77.52) 01/02/2025 Hallux rigidus of right foot (ICD-10 - M20.21) Plan Of Treatment Pending Test Test Name Order Date X ray : Foot, right 2V 12/31/2011 Tc99 3 phase Bone Scan 08/27/2011 X ray : Foot, right 3V 08/27/2011 X ray : Foot, right 3V 10/27/2011 X ray : Foot, right 3V 11/12/2011 X ray : Foot, right 3V 12/04/2011 X ray : Foot, right 3V 02/11/2012 [id number] NAIL, 6 OR MORE 09/09/2021 [id number] NAIL, 6 OR MORE 12/19/2021 [id number] NAIL, 6 OR MORE 03/24/2022 [id number] NAIL, 6 OR MORE 07/10/2022 25423-[id number] NAIL, 6 OR MORE 10/09/2022 [id number] NAIL, 6 OR MORE 02/09/2023 [id number] NAIL, 6 OR MORE 05/07/2023 [id number] NAIL, 1-5 10/01/2023 [id number] NAIL, 1-5 12/31/2023 [id number] NAIL, 1-5 01/02/2025 38774,[id number] TENDON SHEATH/LIGAMENT 0 09/08/2011- Ganglion Cyst Injection/Aspiratio n 06/06/2021- Ganglion Cyst Injection/Aspiratio n 09/09/2021- Ganglion Cyst Injection/Aspiratio n 02/09/2023- Ganglion Cyst Injection/Aspiratio n 03/24/2022- Ganglion Cyst Injection/Aspiratio n 12/19/2021- Ganglion Cyst Injection/Aspiratio n 05/07/2023 Next Appt Details Provider Name:Mildred Fields , 01/01/2026 10:00:00 AM, [address], [place], [address], Insurance Providers Payer Name Payer Address Payer Phone Subscriber Number Group Number Insured Name Patient Relationship to Insured Coverage Start Date Coverage End Date Medicare National [facility] [employer] [address] [place] [address] [id number] Kelsie Shine Self - patient is the insured [employer] [address] [place] [address] [phone] [id number] Kelsie Shine Self - patient is the [...] in Limb 729.5 Myositis 729.1 Bursitis 727.3 Osteoarthritis of left ankle and foot M1 9.072 Osteoarthritis of right ankle and foot M 19.071 Surgical History Surgery Date(Month/Year) section 03/07/1991 Left knee replacement 07/22/2018 Right Knee rePlacement 11/16/2018 Cardiac Morutor placed 06/11/2020 cortisone injection Ramon upper leg 022 cataract surgery 02/2022 Removal of Cyst Right Hallux 10/28/2023
--- NOTE | 2025-02-05 07:38 | ED_ITS ---
HPI - General Adult General Chief complaint: Fall Stated complaint: passed out / head strike Time Seen by Provider: 02/05/25 07:24 Source: patient and family Mode of arrival: ambulatory Limitations: no limitations History of Present Illness ED Provider: DR. Contreras HPI narrative: 69-year-old female came in for evaluation after having a fall. Woke up at 06:00 took her dog out came back felt difficulty breathing patient took several albuterol doses then patient sustained fall backwards hitting the back of her head causing a small laceration and small hematoma of the back of the head patient stated that albuterol made her jittery and caused her to fall, possible LOC for few sec. patient felt electrical shocks comes in waves to the whole entire body. Patient remained on the ground for few sec then got herself up, patient sustained a small laceration at the back of her head, complain of right shoulder pain, no CP, no SOB, no abdominal pain, no back pain. Not on anticoagulation. Related Data Previous Rx's ?Medication ?Instructions ?Recorded azithromycin 250 mg tablet See Rx Instructions PO .COM PLEX #6 02/05/25 (Zithromax Z-David) tabs prednisone 20 mg tablet 20 mg PO BID #10 tabs Allergies Allergy/AdvReac Type Severity Reaction Status Date / Time latex (LATEX) Allergy Unknown RASH Verified 02/05/25 06:58 pollen extracts (POLLEN) Allergy Unknown SINUS Verified 02/05/25 06:58 PROBLEMS, WATERY EYES Review of Systems 2 Review of Systems: All other systems are reviewed and are negative Constitutional: Reports as per HPI and Reports no additional constitutional complaints Eyes: Reports as per HPI and Reports no additional eye complaints Reports system reviewed and no additional complaints, except as documented Cardiovascular: Reports as per HPI and Reports no additional cardiovascular complaints Respiratory: Reports as per HPI and Reports no additional respiratory complaints Gastrointestinal: Reports as per HPI and Reports no additional gastrointestinal complaints Genitourinary: Reports no additional female genitourinary complaints Musculoskeletal: Reports no additional musculoskeletal complaints Skin/Breast: Reports system reviewed and no additional complaints, except as docu Psychiatric: Reports no additional psychiatric complaints Endocrine: Reports no additional endocrine complaints Hematologic/Lymphatic: Reports no additional hematologic/lymphatic complaints Allergic/Immunologic: Reports no additional allergic/immunologic complaints Reports system reviewed and no additional complaints, except as documented and Reports Abnormal speech present [facility] Social History Social History Advance Directives: Yes Advance Directives Information Provided: Yes Advance Directives on File: No Do you have a plan to hurt others: No Plan Physical Exam ED Vital Signs: Vital Signs - 24 hr 02/05/25 06:53 Temperature 98.5 F Pulse Rate 83 Respiratory Rate 17 Blood Pressure 180/74 H Pulse Oximetry 98 Oxygen Delivery Method Room Air BMI result Body Mass Index 43.4 Vital signs have been reviewed and appear to be correct. Blood pressure elevated. Heart rate normal. Respiratory rate normal. Temperature normal. Oxygen saturation normal. Appearance: Alert. Oriented X3. No acute distress. Head: Normal external exam. Normocephalic. Small area of hematoma at the occipital area, small laceration actively no bleeding. No Carey signs noted. No raccoon eyes noted Eyes: PERRLA. EOMI. Conjunctiva and sclera normal. Eyelids normal. ENT: TM's Normal. Pharynx normal. Uvula midline. Moist mucous membranes. No trismus noted. No drooling noted. No muffled voice noted. Neck: Normal inspection. Neck supple. FROM. No adenopathy. Thyroid Normal. No meningeal signs. No neck mass noted. CVS: Normal heart rate and rhythm. Heart sound normal. No murmurs noted. Pulses normal throughout. Respiratory: No respiratory distress. Painless inspiration. Breath sounds normal. Diffuse expiratory wheezing with prolonged expiration, Chest nontender. No accessory muscle usage noted or decreased air movement noted. Abdomen: Soft and nontender. Bowel sounds normal in all 4 quadrants. No distention noted. No organomegaly noted. No visible injury noted. Back: No CVA tenderness. Full range of motion noted. Skin: Skin warm and dry. Normal skin color. Normal skin turgor. No rashes/lesions/lacerations noted. Extremities: No lower extremity edema. Extremities exhibit normal range of motion. Extremities nontender. Neuro: Oriented X 3. Cranial nerve exam: II-XII are grossly intact No motor deficit. No sensory deficit. Reflexes normal. Course Reevaluation(s) Reevaluation #1: 69-year-old female for the last few days been having cough and asthma using albuterol frequently which cause her to become jittery and unbalanced, felt today after having several doses of albuterol. Patient sustained closed head injury with small scalp laceration. No active bleeding. Patient now feels better, negative x-ray of the right shoulder and chest. No chest pain, troponin is negative x2, unremarkable EKG. Bronchitis: will start prednisone and Z-David. Time: 11:55 Medications Administered Discontinued Medications Generic Name Dose Route Start Last Admin Trade Name Freq PRN Reason Stop Dose Admin Diphtheria/Tetanus/Acell Pertussis 0.5 ml 02/05/25 07:35 02/05/25 10:19 Diphth,Pertus(Acell),Tet Adult 0.5 Ml Syringe IM 02/05/25 07:36 0.5 ml .ONCE ONE Administration Medical Decision Making Differential Diagnosis Differential Diagnoses: The differential diagnosis associated with the presentation includes (Albuterol side-effect, syncope, ACS, pneumonia, bronchitis, right shoulder fracture, electrolyte derangement, severe anemia.) Admission/Observation Consideration of admission/observation: Escalation of care including admission/observation considered Lab Data MDM Lab Attestation statement: I reviewed the patient's lab results. 02/05/25 09:16 02/05/25 09:16 Labs: Lab Results 02/05/25 Range/Units 09:16 WBC 8.9 (4.8-10.8) X10*3/uL RBC 4.25 (4.20-5.50) X10*6/uL Hgb 12.3 (12.0-16.0) g/dl Hct 38.4 (37.0-47.0) % MCV 90.4 (80.0-98.0) fL MCH 28.9 (27.0-33.0) pg MCHC 32.0 (31.0-35.0) g/dl RDW 14.3 (11.0-16.0) % Plt Count 238 (160-400) X10*3/uL MPV 10.0 (9.4-12.3) fL Immature Gran % (Auto) 0.3 (0.0-0.4) % Neut % (Auto) 68.4 (45-73) % Lymph % (Auto) 18.6 L (20-40) % [place] % (Auto) 8.6 (2-11) % Eos % (Auto) 3.7 (0-4) % Baso % (Auto) 0.4 (0-2) % Lymph # (Auto) 1.7 (1.2-4.9) X10*3/uL [place] # (Auto) 0.8 (0.1-1.2) X10*3/uL Eos # (Auto) 0.3 (0.0-0.4) X10*3/uL Baso # (Auto) 0.0 (0.0-0.2) X10*3/uL Abs Immat Gran (auto) 0.03 (0.00-0.03) X10*3/uL Absolute Neuts (auto) 6.1 (2.0-8.3) x10*3/uL Absolute Nucleated RBC 0.000 (0.0-0.012) X10*3/uL Nucleated RBC % (auto) 0.0 (0.0-0.2) /100WBC PT 10.2 L (10.9-12.4) SEC INR 0.9 (0.9-1.1) Sodium 140 (135-145) mmol/L Potassium 4.7 (3.3-5.1) mmol/L Chloride 108 (96-108) mmol/L Carbon Dioxide 25 (22-29) mmol/L Anion Gap 12 (12-20) BUN 24 H (9-16) mg/dL Creatinine 1.01 (0.5-1.4) mg/dL Estim Creat Clear Calc 57.5 Estimated GFR 54 Random Glucose 112 (60-115) mg/dL Calcium 9.4 (8.4-10.2) mg/dL Total Bilirubin 0.7 (0.0-1.0) mg/dL Direct Bilirubin 0.3 (0.0-0.5) mg/dL AST 22 (5-31) U/L ALT 21 (0-31) U/L Alkaline Phosphatase 61 (39-117) U/L Troponin I High Sens 3.3 (<3.5-17.0) ng/L Total Protein 6.9 (6.5-8.0) g/dL Albumin 4.3 (3.5-5.0) g/dL Lipase 30 (8-78) U/L Independent Interpretation I performed an independent interpretation of an: Plain X-Ray (Right shoulder/chest: No acute findings.) and CT Scan (Head/C-spine:There is a large right parieto-occipital scalp hematoma.) Discharge Plan Discharge Clinical Impression: Acute bronchitis, Fall Patient Disposition: Home, Self-Care Instructions: Acute Bronchitis (ED), Fall Prevention (ED) Prescriptions: New azithromycin [Zithromax Z-David] 250 mg tablet See Rx Instructions .ROUTE .COMPLEX Qty: 6 0RF Rx Instructions: For 250 mg dose pack: take 500 mg today (day 1), then 250 mg for 4 days (days 2-5) prednisone 20 mg tablet 20 mg PO BID Qty: 10 0RF Referrals: Jaiden Chauhan MD [Primary Care Provider, Internal Medicine] Print Language: Sami
--- NOTE | 2025-02-05 07:38 | ECG_ITS ---
Test Reason : fall Blood Pressure : */* mmHG Vent. Rate : 70 BPM Atrial Rate : 70 BPM P-R Int : 166 ms QRS Dur : 84 ms QT Int : 382 ms P-R-T Axes : 55 42 23 degrees QTcB Int : 412 ms Normal sinus rhythm Normal ECG No previous ECGs available Referred By: Tracy Contreras Electronically Signed By: Pantera Pedro
[2025-02-05 09:20] LABS: MANUAL DIFF FLAG NO
[2025-02-05 09:24] LABS: Hematocrit 38.4 % (37.0-47.0); Hemoglobin 12.3 g/dl (12.0-16.0); Imm Gran Abs Auto 0.03 X10*3/uL (0.00-0.03); Imm Gran Pct Auto 0.3 % (0.0-0.4); Lymphocytes Absolute Auto 1.7 X10*3/uL (1.2-4.9); Mean Corpuscular HGB Conc 32.0 g/dl (31.0-35.0); Mean Corpuscular Hemoglobin 28.9 pg (27.0-33.0); Mean Corpuscular Volume 90.4 fL (80.0-98.0); NRBC Abs Auto 0.000 X10*3/uL (0.0-0.012); NRBC Pct Auto 0.0 /100WBC (0.0-0.2); Platelet Count 238 X10*3/uL (160-400); Red Blood Count 4.25 X10*6/uL (4.20-5.50); White Blood Count 8.9 X10*3/uL (4.8-10.8)
[2025-02-05 09:26] LABS: INTERNATIONAL NORM RATIO 0.9 (0.9-1.1); Prothrombin Time 10.2 SEC (10.9-12.4)
[2025-02-05 09:38] LABS: Alanine Aminotransferase 21 U/L (0-31); Albumin Level 4.3 g/dL (3.5-5.0); Alkaline Phosphatase 61 U/L (39-117); Anion Gap 12 (12-20); Aspartate Amino Transferase 22 U/L (5-31); Blood Urea Nitrogen 24 mg/dL (9-16); Calcium 9.4 mg/dL (8.4-10.2); Carbon Dioxide 25 mmol/L (22-29); Chloride 108 mmol/L (96-108); Creatinine Clr Calc Pharmacy 57.5; Estimated Glomerular Filt Rate 54; Lipase 30 U/L (8-78); Potassium 4.7 mmol/L (3.3-5.1); Sodium 140 mmol/L (135-145); Total Protein 6.9 g/dL (6.5-8.0)
[2025-02-05 09:45] LABS: Troponin-I High Sensitivity 3.3 ng/L (<3.5-17.0)
[2025-02-05] MEDS: Diphth,Pertus(ACell),Tet Adult 0.5 ML SYRINGE IM (10:19)
[2025-02-05 12:37] LABS: Troponin-I High Sensitivity 3.2 ng/L (<3.5-17.0)
[2025-02-05 15:22] VITALS: BP 144/82; PULSE 78; RESP 18; TEMP 36.6; O2SAT 98
== END 2025-02-05 15:24 | disposition home or self-care (01) ==
PROVIDERS: Emergency Provider Emergency Medicine; PCP Internal Medicine
DX: J40 Bronchitis, not specified as acute or chronic (principal); R06.00 Dyspnea, unspecified; R55 Syncope and collapse; M25.511 Pain in right shoulder; R51.9 Headache, unspecified; S01.91XA Laceration without foreign body of unspecified part of head, initial encounter; W19.XXXA Unspecified fall, initial encounter; Y93.9 Activity, unspecified; Y92.9 Unspecified place or not applicable; Y99.9 Unspecified external cause status; Z23 Encounter for immunization
CPT/HCPCS: 36415; 70450; 71045; 72125; 73030; 80048; 80076; 83690; 84484; 85025; 85610; 90471; 90715; 93005; 99283; 99284

== ENCOUNTER → 2025-02-05 07:35 | Outpatient (BNV) | payer MEDICARE, SELFPAY | PROVIDERS: Emergency Provider Emergency Medicine; PCP Internal Medicine; Visit Provider Specialist | DX: M50.322 Other cervical disc degeneration at C5-C6 level (principal); S00.03XA Contusion of scalp, initial encounter; M25.511 Pain in right shoulder; R55 Syncope and collapse | CPT/HCPCS: 71045; 73030 ==

== ENCOUNTER → 2025-02-05 07:38 | Outpatient (BNV) | payer MEDICARE, SELFPAY | PROVIDERS: Emergency Provider Emergency Medicine; PCP Internal Medicine; Visit Provider Internal Medicine Cardiovascular Disease | DX: S00.03XA Contusion of scalp, initial encounter (principal); W19.XXXA Unspecified fall, initial encounter | CPT/HCPCS: 93010 ==

== ENCOUNTER 2025-03-27 06:17 | Day surgery (SDC) | payer MEDICARE, SELFPAY ==
--- OUTSIDE RECORDS SUMMARY | 2025-02-10 07:45 | XMS_ITS | Patient Health Record ---
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 Role Phone Jaiden Chauhan MD Primary Care Provider Zurdo Stein Unavailable [phone] Allergies Allergen (clinical drug ingredient) Drug/Non Drug [...] Colon cancer screening (Z12.11) Active confirmed Problem 333079408 Gastro-esophagea l reflux disease without esophagitis (K21.9) Active confirmed Problem [id number] Barretts esophagus without dysplasia (K22.70) Active confirmed Vital Signs Temperature 97.5 degrees Fahrenheit 08/31/2024 Blood pressure diastolic 01 mm Hg 08/31/2024 Height 61.50 in 08/31/2024 Blood pressure systolic 001 mm Hg 08/31/2024 Weight 235 lbs 08/31/2024 BMI 43.68 kg/m2 08/31/2024 Procedures Procedure Date Ordered Date Performed Result Body Sit e COLONOSCOPY 08/31/2024 N/A Encounters Encounter Location Date Provider Diagnosis [facility] [address] [place] [address] 08/31/2024 Zurdo Dyer Gastro-esophageal reflux disease without [...] Name:Zurdo Jordan Manisha , 03/27/2025 07:30:00 AM, [address] [place] [address] , [place], [place], [phone], Insurance Providers Payer Name Payer Address Payer Phone Subscriber Number Group Number Insured Name Patient Relationship to Insured Coverage Start Date Coverage End Date MEDICARE OF [place] [address] [place] [address] [id number] KELSIE FERNANDEZ Self - patient is the insured 0 [employer] CLAIMS [address] [place] [address] [id number] KELSIE FERNANDEZ Self - patient is the insured Medical (General) History Medical History History ICD Code Last EGD 12/2011-no Reynolds's mucosa seen--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
--- OUTSIDE RECORDS SUMMARY | 2025-02-10 07:45 | XMS_ITS | Encounter Summary ---
Author Organization [facility] Address [address] [place] [address] Phone Care Team Providers Care Special Class Welder Name Role Phone Jaiden Chauhan MD Primary Care Provider [phone] Nallely Macedo MD Unavailable [phone] Stevan Maurice DO Unavailable [phone] Jaiden Chauhan MD Unavailable Tabatha Cartagena POWER OPERATOR Unavailable [phone] Encounter Details Date Type Department Care Team (Late st Contact Info) Description 01/09/2025 Orders Only [facility] [address] [place] [address] Provider, MD Natan [address] [place] [address] Social History Tobacco Use Types Packs/Day Years Used Date Smoking Tobacco: Former Cigarettes 0.5 20 0 06/22/1969 - 06/22/1989 Smokeless Tobacco: Never Comments:quit 27 years ago Alcohol Use Standard Drinks/Week Comments Yes 0 (1 standard drink = 0.6 oz pur e alcohol) <2 drinks a month socially Child or Family Care Answer Date Record ed Do you have problems with on e of the following making it difficult for you to work, study, or receive health care? No 04/05/2024 Education Answer Date Recorded Are you interested in more education? Not on tiffani e 02/04/2023 Are you concerned about learning? Not on file 02/04/2023 No 02/04/2023 No 02/04/2023 Food Answer Date Recorded Within the past 6 months we worried whether our food would run out before we got money to buy more. Never True 04/05/2024 Within the past 6 months the food we bought just didn't last and we didn't have enough money to get more. Never True Residential Stability Answer Date Recor ded What is your housing situation today? I have aditi sing 04/05/2024 How many times have you move d in the past 12 months? Zero (I did not move) 04/05/2024 Paying for Meds Answer Date Recorded Do you have trouble paying for medicines? No 04/05/2024 Paying Utility Bills Answer Date Record ed Do you have trouble paying your heating or elect ricity bill? No 04/05/2024 Transportation Answer Date Recorded Has the lack of transportati on kept you from medical appointments or from getting medications? No 04/05/2024 Unemployment Answer Date Recorded Are you currently unemployed or working on a part-time or temporary basis, and looking for work? No 02/02/2021 Digital Access Answer Date Recorded No 04/05/2024 Yes 04/05/2024 Do you have reliable internet access at home? Ye s 04/05/2024 Do you have a device (e.g., phone, tablet, computer) with a working camera? Yes 04/05/2024 Intimate Partner Violence Answer Date R ecorded Denied Basic Needs Not on file 04/05/2024 In the past 12 months have y ou been in a relationship with a person who hurts, threatens, or tries to control you? No 04/05/2024 Worried food would run out Not on file 04/05 In the past 12 months have y ou been in a relationship with a person who hurts, threatens, or tries to control you? No 04/05/2024 Comments No Sex and Gender Information Value Date Recorded Sex Assigned at Female 06/19/2020 10:06 AM EST Legal Sex Female 6:47 PM EST Gender Identity Female 06/19/2020 10:06 AM EST Sexual Orientation Straight 06/28/2021 10 :03 AM EST documented as of this encounter Plan of Treatment Upcoming Encounters Date Type Department Care Team (Late st Contact Info) Description 04/13/2025 1:00 PM EDT Nutrition [facility] [address] [place] [address] Jaz Courtney MD [address] [place] [address] [address] Shayy Cox LDN 22 [facility], [address] [place] [address] 04/19/2025 3:00 PM EDT Office Visit [facility] [address] [place] [address] Jaiden Chauhan MD [address] [place] [address] 07/17/2025 1:15 PM EST Office Visit [facility] [address] [place] [address], [address] [place] [address] Stevan Maurice DO [address] [address] 07/24/2025 10:00 AM EST Office Visit [facility] [address] [place] [address] Janie Nicole, RADHA 22 [facility], [address] [place] [address] 09/27/2025 11:00 AM EDT Office Visit [facility] [address] [place] [address] Jaiden Chauhan MD [address] [place] [address] 01/08/2026 11:20 AM EDT Office Visit [facility] [address] [facility] 3rd Floor, [address] [place] [address] Zurdo Thacker MD, MS 22 [facility], [address] [place] [address] [email or web address] 01/24/2026 10:40 AM EDT Office Visit [facility] [address] [place], [place] [phone] Pierre Huber PA-C [address] [place], [place] [id number] [email or web address] documented as of this encounter Procedures Procedure Name Priority Date/Time Associated Diagnosis Comments OUTSIDE IMAGING Routine 12/28/2024 11:15 AM EDT OUTSIDE IMAGING Routine 12/28/2024 11:15 AM EDT documented in this encounter Results * Outside Imaging Report Only (12/28/2024 11:15 AM EDT) Historical Provider IMRandy XR CHEST Final Res ult * Outside Imaging Report Only (12/28/2024 11:15 AM EDT) us Historical Provider IMRandy XR CHEST Final Res ult documented in this encounter Visit Diagnoses Not on filedocumented in this encounter Additional Health Concerns Assessment Noted Time PHQ-2 Depression Total Score: 1 04/05/20 24 7:06 AM EDT documented as of this encounter Care Teams Special Class Welder Relationship Specialty Start Date End Date Jaiden Chauhan MD [address] [place] [phone] [email or web address] PCP - General Internal Medicine 06/03/17 Nallely Macedo MD [address] [place] [phone] [email or web address] 01/31/20 Stevan Maurice DO [address] [place] [address] Cardiology 06/28/20 Jaiden Chauhan MD [address] [place] [phone] [email or web address] Insurance Assigned Provider 09/26/23 Tabatha Cartagena NP [address] [place] [address] [address] [place] [address] Nurse Practitioner 07/30/23 documented as of this encounter Additional Source Comments The information contained in this document represents components of the legal health record. It is not the complete legal health record.[facility]
--- OUTSIDE RECORDS SUMMARY | 2025-02-10 07:45 | XMS_ITS | Patient Health Record ---
Author Organization [facility] Address [address] [place] [address] Care Team Providers Care Cleaner Name Role Phone Jaiden Chauhan MD Primary Care Provider Mildred Oreilly Unavailable [phone] Allergies Allergen (clinical drug ingredient) Drug/Non Drug [...] Unknown 02/20/2023 Administered Influenza Unknown 10/26/2024 Administered Social History Tobacco Use: Social History [...] Problem Acquired hammer toe of right foot (915744877777606 5) Other hammer toe(s) (acquired), right foot (M20.41) Active confirmed Problem Acquired hammer toe of left foot (719418390665713 3) Other hammer toe(s) (acquired), left foot (M20.42) Active confirmed Problem Type II diabetes mellitus without complication (945474636) Type 2 diabetes mellitus without complications (E11.9) Active confirmed Problem Acquired right hallux rigidus (772263614121173 ) Hallux rigidus of right foot (M20.21) Active confirmed Problem Plantar fasciitis of left foot (795263958255966 01) Plantar fasciitis of left foot (M72.2) Active confirmed Problem 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) Interstitial myositis of left foot (M60.172) Active confirmed Vital Signs Blood pressure diastolic 60 mm Hg 01/02/2025 Height 5ft 1in in 01/02/2025 Blood pressure systolic 126 mm Hg 01/02/2025 Weight 234 lbs 01/02/2025 BMI 44.21 kg/m2 01/02/2025 Procedures Procedure Date Ordered Date Performed Result Body Sit e 48401-ZSKVEKT NAIL, 1-5 01/02/2025 N/A Encounters Encounter Location Date Provider Diagnosis [facility] [address] [place] [address] 01/02/2025 Mildred Fields Other hammer toe(s) (acquired), [...] X ray : Foot, right 3V 02/11/2012 87800-NKPFROY NAIL, 6 OR MORE 09/09/2021 40434-ZQWYUMB NAIL, 6 OR MORE 12/19/2021 29637-UTSHECL NAIL, 6 OR MORE 03/24/2022 22146-DPWGWMK NAIL, 6 OR MORE 07/10/2022 67079-BJSLYDU NAIL, 6 OR MORE 10/09/2022 90705-NLKMJUO NAIL, 6 OR MORE 02/09/2023 20784-NTZZFTO NAIL, 6 OR MORE 05/07/2023 25047-FADGMGP NAIL, 1-5 10/01/2023 41083-LVWZUWO NAIL, 1-5 12/31/2023 75598-PIOOTIC NAIL, 1-5 01/02/2025 22693,[id number]-YJV TENDON SHEATH/LIGAMENT 0 09/08/2011- Ganglion Cyst Injection/Aspiratio n 06/06/2021- Ganglion Cyst Injection/Aspiratio n 09/09/2021- Ganglion Cyst Injection/Aspiratio n 02/09/2023- Ganglion Cyst Injection/Aspiratio n 03/24/2022- Ganglion Cyst Injection/Aspiratio n 12/19/2021- Ganglion Cyst Injection/Aspiratio n 05/07/2023 Next Appt Details Provider Name:Mildred Fields , 01/01/2026 10:00:00 AM, [address] [facility], [place], [address], Insurance Providers Payer Name Payer Address Payer Phone Subscriber Number Group Number Insured Name Patient Relationship to Insured Coverage Start Date Coverage End Date Medicare [employer] [facility] [employer] [address] [place] [address] [phone] [id number] Kelsie Shine Self - patient is the insured [employer] [address] [place] [address] [id number] Kelsie Shine Self - patient is the [...]
[2025-03-23 14:10] VITALS: BMI 43.7
--- NOTE | 2025-03-24 08:51 | HO.ANESPROP2 ---
Documented by User: Svetlana Go NP 03/24/25 08:52 HPI - Anesthesia Eval Consult details Narrative: 69yo F for Colonoscopy WPW. 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 no symptoms, has not done ablation. EKG 01/2025 NSR Anesthesia Pre-Procedure Meds Is the patient on any of the following meds?: GLP1/DPP4 PMFSH Past Medical History Medical History Right shoulder injury Reactive airway disease Diabetes HTN (hypertension) Hyperlipidemia Fatty liver WPW (Arwcl-Oixqcdgzh-Xfkvx syndrome) Barretts esophagus GERD (gastroesophageal reflux disease) Surgical History Surgical History History of surgery Hx of foot surgery Hx of bilateral cataract extraction History of total bilateral knee replacement Hx of eye surgery Hx of section History of rectal surgery H/O colonoscopy History of esophagogastroduodenoscopy (EGD) Social History Social History Patient Tobacco Use Status: Former Tobacco user Tobacco use type: Cigarette Use of substances other than those prescribed or required for medical reasons: No Are you DNR?: No Advance Directives: No Advance Directives Information Provided: Yes Patient : No : No Poor oral hygiene: No Meds Allergies Allergy/AdvReac Type Severity Reaction Status Date / Time latex (LATEX) Allergy Unknown RASH Verified 02/05/25 06:58 pollen extracts (POLLEN) Allergy Unknown SINUS Verified 02/05/25 06:58 PROBLEMS, WATERY EYES Home Medications ?Medication ?Instructions ?Recorded ?Confirmed ?Last Taken ?Type albuterol sulfate 90 mcg/actuation 2 puff inhalation Q6H PRN 03/23/25 03/23/25 Unknown History aerosol inhaler Shortness Of Breath Or Wheezing amlodipine 5 mg tablet 5 mg PO BID 03/23/25 03/23/25 03/27/25 History aspirin 81 mg tablet,delayed 81 mg PO DAILY 03/23/25 03/23/25 Unknown History release atorvastatin 20 mg tablet 20 mg PO DAILY 03/23/25 03/23/25 Unknown History carvedilol 6.25 mg tablet 6.25 mg PO BID 10/02/25 10/02/25 10/06/25 History cholecalciferol (vitamin D3) 50 50 mcg PO DAILY 03/23/25 03/23/25 Unknown History mcg (2,000 unit) capsule (Vitamin D3) famotidine 20 mg tablet 20 mg PO BID 03/23/25 03/23/25 Unknown History furosemide 20 mg tablet 20 mg PO DAILY 03/23/25 03/23/25 Unknown History magnesium oxide 400 mg PO DAILY 03/23/25 03/23/25 Unknown History multivitamin 1 tab PO DAILY 03/23/25 03/23/25 Unknown History olmesartan 40 mg tablet 40 mg PO DAILY 03/23/25 03/23/25 Unknown History tirzepatide 5 mg/0.5 mL 5 mg subcut QWEEK 03/23/25 03/23/25 03/12/25 History subcutaneous pen injector (Mounjaro) Exam Height,Weight and Vital Signs: Height 5 ft 1.5 in Weight 106.594 kg Narrative Narrative: EKG 01/2025 Vent. Rate : 70 BPM Atrial Rate : 70 BPM P-R Int : 166 ms QRS Dur : 84 ms QT Int : 382 ms P-R-T Axes : 55 42 23 degrees QTcB Int : 412 ms Normal sinus rhythm Normal ECG No previous ECGs available Assessment and Plan Assessment Anesthesia Assessment: Chart Reviewed Documented by User: João Zarate MD 03/27/25 07:25 HPI - Anesthesia Eval Anesthesia Pre-Procedure Meds If yes to any meds - educate patient: Pt education - increased risk of aspiration and/or euvolemic DKA and Pt education - possibility of cancelled proc at provider's discretion PMFSH Past Medical History Medical History Right shoulder injury Reactive airway disease Diabetes HTN (hypertension) Hyperlipidemia Fatty liver WPW (Wzror-Tudsburuv-Vzvyc syndrome) Barretts esophagus GERD (gastroesophageal reflux disease) Functional capacity: independent ambulation Family History Family history of problems with anesthesia: No Surgical History Surgical History History of surgery Hx of foot surgery Hx of bilateral cataract extraction History of total bilateral knee replacement Hx of eye surgery Hx of section History of rectal surgery H/O colonoscopy History of esophagogastroduodenoscopy (EGD) History of Problems with Anesthesia: No Social History Social History Patient Tobacco Use Status: Former Tobacco user Tobacco use type: Cigarette Use of substances other than those prescribed or required for medical reasons: No Are you DNR?: No Advance Directives: No Advance Directives Information Provided: Yes Patient : No : No Poor oral hygiene: No Meds Allergies Allergy/AdvReac Type Severity Reaction Status Date / Time latex (LATEX) Allergy Unknown RASH Verified 02/05/25 06:58 pollen extracts (POLLEN) Allergy Unknown SINUS Verified 02/05/25 06:58 PROBLEMS, WATERY EYES Home Medications ?Medication ?Instructions ?Recorded ?Confirmed ?Last Taken ?Type albuterol sulfate 90 mcg/actuation 2 puff inhalation Q6H PRN 03/23/25 03/23/25 Unknown History aerosol inhaler Shortness Of Breath Or Wheezing amlodipine 5 mg tablet 5 mg PO BID 03/23/25 03/23/25 03/27/25 History aspirin 81 mg tablet,delayed 81 mg PO DAILY 03/23/25 03/23/25 Unknown History release atorvastatin 20 mg tablet 20 mg PO DAILY 03/23/25 03/23/25 Unknown History carvedilol 6.25 mg tablet 6.25 mg PO BID 03/23/25 03/23/25 03/27/25 History cholecalciferol (vitamin D3) 50 50 mcg PO DAILY 03/23/25 03/23/25 Unknown History mcg (2,000 unit) capsule (Vitamin D3) famotidine 20 mg tablet 20 mg PO BID 03/23/25 03/23/25 Unknown History furosemide 20 mg tablet 20 mg PO DAILY 03/23/25 03/23/25 Unknown History magnesium oxide 400 mg PO DAILY 03/23/25 03/23/25 Unknown History multivitamin 1 tab PO DAILY 03/23/25 03/23/25 Unknown History olmesartan 40 mg tablet 40 mg PO DAILY 03/23/25 03/23/25 Unknown History tirzepatide 5 mg/0.5 mL 5 mg subcut QWEEK 03/23/25 03/23/25 03/12/25 History subcutaneous pen injector (Lam) Exam Exam Date and Time: 03/27/2025 Airway Mallampati Class: III TM Dist: >3cm Neck ROM: Full Heart: rrr Lungs: cta Assessment and Plan Assessment Anesthesia Assessment: Anesthesia Plan Discussed and Smoking Cess. Discussed Final Anesthetic Review Family History of Problems with Anesthesia: No History of Problems with Anesthesia: No NPO: Yes ASA Class: III Final Preanesthetic Review: No Changes in Pt Med Stat, Meds/Allgs Chart Reviewed, Consent Obtained/Reviewed and Anes Risks/Benef Reviewed Patient Risk: Low Procedure Risk: Low Anesthetic Plan Anesthetic Plan: MAC: Disposition: Standard PACU
[2025-03-27 07:00] VITALS: BMI 43.9
[2025-03-27 07:07] VITALS: BP 122/62; PULSE 80; RESP 16; TEMP 36.2; O2SAT 95
[2025-03-27 07:16] LABS: Glucose, Whole Blood 143 mg/dL (60-115)
[2025-03-27] MEDS: Lactated Ringers 1,000 ML 100 ML IVCONT (07:20)
--- NOTE | 2025-03-27 07:51 | PC.NURSE ---
md barger stuck in traffic
[2025-03-27 09:17] VITALS: BP 120/70; PULSE 70; RESP 18; TEMP 36.7; O2SAT 92
[2025-03-27 09:30] VITALS: BP 114/50; PULSE 81; RESP 16; TEMP 36.2; O2SAT 97
--- NOTE | 2025-03-27 09:57 | OP_ITS ---
DATE OF SERVICE: 03/27/2025 SURGEON: Zurdo Dyer MD INDICATIONS: The patient presents for evaluation of colorectal screening. Full consent has been obtained from her for this, including risks of bleeding and perforation. PREOPERATIVE DIAGNOSIS: Colorectal cancer screening. POSTOPERATIVE DIAGNOSIS: PROCEDURE PERFORMED: Colonoscopy to the cecum with hot snare polypectomy x 6. ESTIMATED BLOOD LOSS: COMPLICATIONS: ANESTHESIA: Medication used, monitored anesthesia care. ASSISTANTS: SPECIMENS: POSTOPERATIVE DIAGNOSES: Colorectal cancer screening, colon polyps, diverticulosis, internal hemorrhoids. DESCRIPTION OF PROCEDURE: The patient was placed in the left lateral decubitus position. The digital rectal exam revealed no abnormalities. The Olympus video pediatric colonoscope was entered into the rectum and advanced to the cecum with the assistance of abdominal pressure. Advancement to the cecum was difficult. Once in the cecum, I did identify normal-appearing cecal pouch with appendiceal orifice and a normal-appearing ileocecal valve. The entire cecum and ileocecal valve appeared normal. The scope was slowly withdrawn assessing all mucosal surfaces carefully. Preparation was excellent. I visualized a total of 6 polyps. They ranged in size from 6 mm at the 20 cm area and up to 1.5 cm in the transverse colon area. There were 2 polyps in the ascending colon and these were removed by hot snare polypectomy with both recovered by suction. Both polypectomy sites appeared clean, without any sign of residual polyp nor bleeding. In the transverse colon were 2 polyps, which were also removed by hot snare polypectomy and recovered by suction. Both polypectomy sites appeared clean, without any sign of residual polyp nor bleeding. At 20 cm, the 2 polyps were also removed by hot snare polypectomy and recovered by suction. Both polypectomy sites appeared clean, without any sign of residual polyp nor bleeding. I did not visualize any other polyps, colitis, nor angiodysplasia. There was a moderate amount of sigmoid diverticulosis. In the rectum, the scope was retroflexed visualizing internal hemorrhoids, but no other pathology. The rectal mucosa appeared normal. The scope was straightened and withdrawn from the patient. She tolerated the procedure well and was returned to the recovery area in stable condition. IMPRESSION: 1. Colon polyps. 2. Diverticulosis. 3. Internal hemorrhoids. PLAN: The results of the pathology will be checked. I would recommend a repeat colonoscopy within 3 years for further screening given the number of polyps seen and removed today. She was advised not to use any aspirin nor NSAIDs for at least 1 week. MD SUPRIYA Harrell/CHERIE / [id number] MTDD
--- NOTE | 2025-03-27 16:32 | PM.OP ---
Brief Operative Note Date of Service: 03/27/25 Pre-op diagnosis: Screening Post-op diagnosis: other (Colon polyps) Procedure: Colonoscopy to the cecum with hot snare polypectomy x 6 Surgeon: Zurdo Dyer MD Anesthesia: MAC Was an Wildlife Conservation Professor used for this Procedure?: No Estimated blood loss (mL): 0 Pathology: other (A. Ascending colon polyps B. Transverse colon polyps C. Polyps at 20cm) Condition: stable Disposition: PACU
== END 2025-03-27 10:26 | disposition home or self-care (01) ==
PROVIDERS: PCP Internal Medicine; Visit Provider Internal Medicine
PROC: 0DJD8ZZ Inspection of Lower Intestinal Tract, Via Natural or Artificial Opening Endoscopic (ICD-10-PCS; CPT 45378; principal; 2025-03-27 07:30)
DX: Z12.11 Encounter for screening for malignant neoplasm of colon (principal); A42.1 Abdominal actinomycosis; K21.9 Gastro-esophageal reflux disease without esophagitis; K57.30 Diverticulosis of large intestine without perforation or abscess without bleeding; D12.2 Benign neoplasm of ascending colon; K63.5 Polyp of colon; D12.3 Benign neoplasm of transverse colon; Z80.0 Family history of malignant neoplasm of digestive organs; E11.9 Type 2 diabetes mellitus without complications
CPT/HCPCS: 45384; 82947; 88305; J2003; J2704; J3010